=== PATIENT | female | born 1970 | race African-American/Black ===

== ENCOUNTER 2018-07-31 10:04 | Inpatient (IN) | payer OTHER ==
--- NOTE | 2018-07-31 10:31 | HP ---
CIWA Score Nausea/Vomitin Muscle Tremors: 2 Anxiety: 2 Agitation: 2 Paroxysmal Sweats: 1-Minimal Palms Moist Orientation: 0-Oriented Tacttile Disturbances: 1-Very Mild Itch/Numbness Auditory Disturbances: 1-Very Mild Visual Disturbances: 0-None Headache: 2-Mild CIWA-Ar Total Score: 13 - Admission Criteria OASAS Guidelines: Admission for Medically Managed Detox: Requires at least one of the followin. CIWA greater than 12 2. Seizures within the past 24 hours 3. Delirium tremens within the past 24 hours 4. Hallucinations within the past 24 hours 5. Acute intervention needed for co occurring medical disorder 6. Acute intervention needed for co occurring psychiatric disorder 7. Severe withdrawal that cannot be handled at a lower level of care (continued vomiting, continued diarrhea, abnormal vital signs) requiring intravenous medication and/or fluids 8. Patient presents the following: CIWA greater than 12 Admission Criteria Met: Admission criteria met Admission ROS B[facility] - HPI Chief Complaint: i need help to stop drinking alcohol and cocaine Allergies/Adverse Reactions: Allergies Allergy/AdvReac Type Severity Reaction Status Date / Time No Known Drug Allergies Allergy Severe Verified 07/31/18 10:37 turkey Allergy Severe Hives Verified 07/31/18 10:37 History of Present Illness: this 47 years old female with alcohol and cocaine dependence,seeking detox, withdrawal symptom,multiple admissions in the past but keep relapsing, last detox [facility] 04/03/16 to 04/04/16 not completed,history of non compliance former smoker, stopped ker 35 cigarette/day,but stopped 1 week ago weight loss schizophrenia on med no significant period of sobriety Exam Limitations: No Limitations - Ebola screening Have you traveled outside of the country in the last 21 days: No Have you had contact with anyone from an Ebola affected area: No - Review of Systems Constitutional: Loss of Appetite, Malaise, Night Sweats, Changes in sleep, Weakness, Unintentional Wgt. Loss EENT: reports: Nose Congestion Respiratory: reports: No Symptoms reported Cardiac: reports: Palpitations GI: reports: Nausea, Indigestion, Abdominal cramping : reports: No Symptoms Reported Musculoskeletal: reports: Back Pain, Muscle Pain Integumentary: reports: Dryness Neuro: reports: Headache, Tremors Endocrine: reports: No Symptoms Reported Hematology: reports: No Symptoms Reported Psychiatric: reports: No Sypmtoms Reported, Judgement Intact, Mood/Affect Appropiate, Orientated x3 Other Systems: Reviewed and Negative Patient History - Patient Medical History Hx Anemia: Yes (NO CURRENT MEDS) Hx Asthma: Yes (MDI) Hx Chronic Obstructive Pulmonary Disease (COPD): No Hx Cancer: No Hx Cardiac Disorders: No Hx Congestive Heart Failure: No Hx Hypertension: No Hx Hypercholesterolemia: No Hx Pacemaker: No HX Cerebrovascular Accident: No Hx Seizures: No Hx Dementia: No Hx Diabetes: No Hx Gastrointestinal Disorders: No Hx Liver Disease: No Hx Genitourinary Disorders: No Hx Sexually Transmitted Disorders: Yes (GENITAL HERPES HX) Hx Renal Disease (ESRD): No Hx Thyroid Disease: No Hx Human Immunodeficiency Virus (HIV): No (04/03/16 last negative) Hx Hepatitis C: No Hx Depression: Yes Hx Suicide Attempt: No (DENIES) Hx Bipolar Disorder: No Hx Schizophrenia: Yes (ON MEDS) Other Medical History: no suicidal,no homicidal - Patient Surgical History Past Surgical History: Yes Hx Neurologic Surgery: No Hx Cataract Extraction: No Hx Cardiac Surgery: No Hx Lung Surgery: No Hx Breast Surgery: No Hx Breast Biopsy: No Hx Abdominal Surgery: No Hx Appendectomy: No Hx Cholecystectomy: No Hx Genitourinary Surgery: No Hx Section: Yes (x 2 IN 1993 AND 1999) Hx Orthopedic Surgery: No Hx Hysterectomy: No Anesthesia Reaction: No - PPD History Previous Implant?: Yes Documented Results: Negative w/o proof Implanted On Prior [facility] Admission?: Yes Date: 01/05/15 Results: 0 mm PPD to be Administered?: Yes - Reproductive History Patient is a Female of Child Bearing Age (11 -55 yrs old): Yes Last Menstrual Period: 07/24/18 Patient : No - Smoking Cessation Smoking history: Former smoker Have you smoked in the past 12 months: Yes Aproximately how many cigarettes per day: 35 If you are a former smoker, when did you quit?: 07/24/18 Cigars Per Day: 0 Hx Chewing Tobacco Use: No Initiated information on smoking cessation: Yes 'Breaking Loose' booklet given: 07/31/18 - Substance & Tx. History Hx Alcohol Use: Yes Hx Substance Use: Yes Substance Use Type: Alcohol, Cocaine Hx Substance Use Treatment: Yes ([facility] 04/03/16 to 04/04/16 not completed) - Substances Abused Alcohol-beer/vodka Route: Oral Frequency: Daily Amount used: 1-6 pk./1 pt. Age of first use: 29 Date of Last Use: 07/30/18 Cocaine Route: Smoking Frequency: Daily Amount used: $50 Age of first use: 30 Date of Last Use: 07/24/18 Family Disease History - Family Disease History Family Disease History: Heart Disease: Father (ALCOHOL,DRUG,HTN), CA: Brother ( AOCOHOL,DRUG), Other: Father, Mother (ALCOHOL,DRUG), Brother, Sister (ALCOHOL, DRUG) Admission Physical Exam [facility] - Vital Signs Vital Signs: Vital Signs Period Temp Pulse Resp BP Sys/Stahl Pulse Ox Last 24 Hr 97 F 103 20 113/62 - Physical General Appearance: Yes: Moderate Distress, Tremorous, Irritable, Sweating, Anxious HEENTM: Yes: Normal ENT Inspection, JOSE, Pharynx Normal, Other (poor dental hygiene) Respiratory: Yes: Lungs Clear, Normal Breath Sounds, No Respiratory Distress Neck: Yes: Within Normal Limits, Supple, Trachea in good position Breast: Yes: Breast Exam Deferred Cardiology: Yes: Within Normal Limits, S1, S2, Tachycardia Abdominal: Yes: Within Normal Limits, Normal Bowel Sounds, Non Tender, Flat, Soft Genitourinary: Yes: Within Normal Limits Back: Yes: Muscle Spasm Musculoskeletal: Yes: Back pain, Muscle Pain Extremities: Yes: Within Normal Limits, Tremors Neurological: Yes: Within Normal Limits, telecommunications repairer II-XII NML intact, Alert, Motor Strength 5/5 Integumentary: Yes: Dry Lymphatic: Yes: Within Normal Limits - Diagnostic (1) Alcohol dependence with uncomplicated withdrawal Current Visit: Yes Status: Chronic (2) Cocaine dependence Current Visit: Yes Status: Chronic (3) Asthma Current Visit: Yes Status: Chronic (4) Nicotine dependence Current Visit: Yes Status: Chronic Qualifiers: Nicotine product type: cigarettes Substance use status: uncomplicated Qualified Code(s): F17.210 - Nicotine dependence, cigarettes, uncomplicated (5) Paranoid schizophrenia Current Visit: No Status: Chronic (6) Weight decreased Current Visit: No Status: Chronic (7) syncope alcohol related Current Visit: No Status: Chronic (8) Dehydration Current Visit: Yes Status: Acute (9) Poor dental hygiene Current Visit: Yes Status: Acute Cleared for Admission [facility] - Detox or Rehab [facility] Level of Care: Medically Managed Detox Regimen/Protocol: Librium B[facility] Breath Alcohol Content Breath Alcohol Content: 0 Inpatient Rehab Admission - Rehab Decision to Admit Inpatient rehab admission?: No
[2018-07-31 10:46] VITALS: BMI 28.1
[2018-07-31] MEDS ORDERED: P-EPHED 60MG/TRIPROLIDI 2.5MG TABLET PO PRN (10:47)
[2018-07-31] MEDS ORDERED: MAGNESIUM CITRATE 300 ML BOTTLE PO PRN (10:47)
[2018-07-31] MEDS ORDERED: MAGNESIUM HYDROX 2400MG/30ML ORAL SUSPENSION 30 ML CUP PO PRN (10:47)
[2018-07-31] MEDS ORDERED: chlordiazePOXIDE HCL 25 MG CAPSULE PO PRN (10:47)
[2018-07-31] MEDS ORDERED: LOPERAMIDE HCL 2 MG CAPSULE PO PRN (10:47)
[2018-07-31] MEDS ORDERED: hydrOXYzine PAMOATE 25 MG CAPSULE (FP) PO PRN (10:47)
[2018-07-31] MEDS ORDERED: MAG HYDROX/AL HYDROX/SIMETH 30 ML UNIT-DOSE CUP PO PRN (10:47)
[2018-07-31] MEDS ORDERED: guaiFENesin/D-METHORPHAN HB 10 ML UNIT-DOSE CUPS PO PRN (10:47)
[2018-07-31] MEDS ORDERED: MENTHOL/PHENOL 1 EACH UD MM PRN (10:47)
[2018-07-31] MEDS ORDERED: ALBUTEROL SO4 8 GM HFA INHALER IH PRN (10:50)
--- NOTE | 2018-07-31 12:18 | CONSULT ---
[facility] Psychiatric Consult - Data Date of interview: 07/31/18 Admission source: [facility] Identifying data: This is one of the multiple admissions to [facility] for this 47 years old AA single mother of 2(24 and 18 yo),domiciled,unemployed,supported by PA. Substance Abuse History: Reports smoking marijuana since 16 years old,4 bags daily,crack/cocaine since 29 yo,spending about $50 daily,drinking since 15 years old,1 pint of bud daily. Medical History: Significant for Anemia,BA. Psychiatric History: Reports first contact with psychiatrist at the age of [age] years old due to first psychotic breakdown with auditory hallucinations, paranoid behavior,drinking ,smoking crack.She was dx with Schiziohrenia,then with Schizoaffective disorder.Patient was on different antipsychotics,reports 10 more psychiatric hospitalizations.No suicidal attempts reported.Currently sees psychiatrist at [facility] in [facility].Current medications:Haldol decanoate 150 mg IM (given 07/17/18),Seroquel 400 mg po hs and 100 mg po am,Cogentin 2 mg po daily. Physical/Sexual Abuse/Trauma History: Patient denies Mental Status Exam - Mental Status Exam Alert and Oriented to: Time, Place, Person Cognitive Function: Grossly Intact Patient Appearance: Well Groomed Mood: Euthymic Affect: Mood Congruent, Normal Range Patient Behavior: Cooperative Speech Pattern: Clear Voice Loudness: Normal Thought Process: Goal Oriented Thought Disorder: Being Controlled Hallucinations: Denies Suicidal Ideation: Denies Homicidal Ideation: Denies Insight/Judgement: Fair Sleep: Fair Appetite: Good Muscle strength/Tone: Normal Gait/Station: Normal Psychiatric Findings - Problem List ([place] 1, 2,3) (1) Cocaine dependence Current Visit: Yes Status: Chronic (2) Alcohol dependence with uncomplicated withdrawal Current Visit: Yes Status: Chronic (3) Asthma Current Visit: Yes Status: Chronic (4) Nicotine dependence Current Visit: Yes Status: Chronic Qualifiers: Nicotine product type: cigarettes Substance use status: uncomplicated Qualified Code(s): F17.210 - Nicotine dependence, cigarettes, uncomplicated (5) Schizoaffective disorder.Depressed type Current Visit: Yes Status: Chronic (6) Seizure Current Visit: Yes Status: Inactive (7) Vaginitis Current Visit: Yes Status: Inactive Qualifiers: Chronicity: acute Qualified Code(s): N76.0 - Acute vaginitis - Initial Treatment Plan Initial Treatment Plan: Continue Seroquel 100 mg po dailly and 400 mg po hs with Cogentin 2 mg po daily.Next injection of Haldol Decanoate 150 mg IM needs to be given on August .Will monitor progress.
[2018-07-31] MEDS: BENZTROPINE MESYLATE 1 MG TABLET (FP) PO SCH (14:52)
[2018-07-31] MEDS: chlordiazePOXIDE HCL 25 MG CAPSULE PO SCH ×2 (17:51→22:35)
[2018-07-31] MEDS ORDERED: MELATONIN 5 MG TABLETS PO PRN (22:00)
[2018-07-31] MEDS: THIAMINE HCL 100 MG TABLET (FP) PO SCH (22:35)
[2018-07-31] MEDS: QUEtiapine FUMARATE 400 MG TABLET PO SCH (22:35)
[2018-07-31 23:24] LABS: URINE APPEARANCE CLOUDY; URINE BILIRUBIN NEGATIVE (<2.0 mg/dL); URINE COLOR AMBER; URINE GLUCOSE (UA) NEGATIVE (NEGATIVE); URINE KETONE NEGATIVE (NEGATIVE); URINE LEUK ESTERASE 2+ (NEGATIVE); URINE NITRITE POSITIVE (NEGATIVE); URINE PROTEIN 1+ (NEGATIVE); URINE UROBILINOGEN NEGATIVE mg/dL (0.2-1.0)
[2018-07-31 23:31] LABS: EPI CELLS MODERATE /HPF (FEW); URINE BACTERIA MODERATE /hpf (NONE SEEN); URINE HYALINE CAST 8 /lpf; URINE MUCUS MANY
[2018-08-01] MEDS: chlordiazePOXIDE HCL 25 MG CAPSULE PO SCH ×4 (05:30→22:39)
[2018-08-01] MEDS: PRENATAL VITAMINS W/ FOLIC ACID TABLET (FP) PO SCH (10:17)
[2018-08-01] MEDS: QUEtiapine FUMARATE 100 MG TABLET (FP) PO SCH (10:18)
[2018-08-01] MEDS: BENZTROPINE MESYLATE 1 MG TABLET (FP) PO SCH (10:18)
[2018-08-01] MEDS: ACETAMINOPHEN 325 MG TABLET (FP) PO PRN ×2 (10:21→22:41)
[2018-08-01 10:53] LABS: HEMATOCRIT 36.5 % (32.4-45.2); HEMOGLOBIN 12.4 GM/dL (10.7-15.3); MCH 32.1 pg (25.7-33.7); MEAN CELL VOLUME 94.6 fl (80-96); MEAN PLT VOLUME 9.2 fl (7.5-11.1); PLATELET COUNT 239 K/MM3 (134-434); RBC 3.86 M/mm3 (3.60-5.2); RDW 13.7 % (11.6-15.6); WHITE BLOOD COUNT 2.7 K/mm3 (4.0-10.0)
[2018-08-01 11:14] LABS: ALBUMIN 3.6 g/dl (3.4-5.0); ALK PHOS 91 U/L (45-117); ANION GAP 8 MMOL/L (8-16); BILIRUBIN,TOTAL 0.8 mg/dL (0.2-1); BLOOD UREA NITROGEN 13 mg/dL (7-18); CALCIUM 8.8 mg/dL (8.5-10.1); CHLORIDE 104 mmol/L (98-107); CO2 26 mmol/L (21-32); CREATININE 0.8 mg/dL (0.55-1.3); GLUCOSE,RANDOM 110 mg/dL (74-106); POTASSIUM 3.8 mmol/L (3.5-5.1); SGOT/AST 10 U/L (15-37); SGPT/ALT 14 U/L (13-61); SODIUM 138 mmol/L (136-145); TOT PROT 7.5 g/dl (6.4-8.2)
--- NOTE | 2018-08-01 11:37 | PN ---
[facility] CIWA - CIWA Score Nausea/Vomitin-No Nausea/No Vomiting Muscle Tremors: 3 Anxiety: 3 Agitation: 3 Paroxysmal Sweats: 3 Orientation: 0-Oriented Tacttile Disturbances: 0-None Auditory Disturbances: 0-None Visual Disturbances: 0-None Headache: 0-None Present CIWA-Ar Total Score: 12 S Progress Note (SOAP) Subjective: headache sweats shakes interrupted sleep Objective: 08/01/18 11:36 Vital Signs Temperature 97.9 F 08/01/18 09:47 Pulse Rate 102 H 08/01/18 09:47 Respiratory Rate 18 08/01/18 09:47 Blood Pressure 110/55 L 08/01/18 09:47 O2 Sat by Pulse Oximetry (%) Laboratory Tests 07/31/18 07/31/18 08/01/18 12:50 21:00 06:00 WBC 2.7 L RBC 3.86 Hgb 12.4 Hct 36.5 MCV 94.6 MCH 32.1 MCHC 34.0 RDW 13.7 Plt Count 239 MPV 9.2 Sodium Potassium Chloride Carbon Dioxide Anion Gap BUN Creatinine Creat Clearance w eGFR Random Glucose Calcium Total Bilirubin AST ALT Alkaline Phosphatase Total Protein Albumin Urine Color Evelin Urine Appearance Cloudy Urine pH 5.0 D Ur Specific [place] 1.028 Urine Protein 1+ H Urine Glucose (UA) Negative Urine Ketones Negative Urine Blood Negative Urine Nitrite Positive Urine Bilirubin Negative Urine Urobilinogen Negative Ur Leukocyte Esterase 2+ H Urine WBC (Auto) 24 Urine RBC (Auto) 1 Ur Epithelial Cells Moderate Urine Bacteria Moderate Hyaline Casts 8 Urine Mucus Many HIV 1&2 Antibody Screen Negative HIV P24 Antigen Negative 08/01/18 06:00 WBC RBC Hgb Hct MCV MCH MCHC RDW Plt Count MPV Sodium 138 Potassium 3.8 Chloride 104 Carbon Dioxide 26 Anion Gap 8 BUN 13 Creatinine 0.8 Creat Clearance w eGFR > 60 Random Glucose 110 H Calcium 8.8 Total Bilirubin 0.8 AST 10 L ALT 14 Alkaline Phosphatase 91 Total Protein 7.5 Albumin 3.6 Urine Color Urine Appearance Urine pH Ur Specific [place] Urine Protein Urine Glucose (UA) Urine Ketones Urine Blood Urine Nitrite Urine Bilirubin Urine Urobilinogen Ur Leukocyte Esterase Urine WBC (Auto) Urine RBC (Auto) Ur Epithelial Cells Urine Bacteria Hyaline Casts Urine Mucus HIV 1&2 Antibody Screen HIV P24 Antigen repeat u/a ambulating no acute distress Assessment: 08/01/18 11:36 withdrawal sx Plan: continue detox increase fluids motrin/tylenol prn
[2018-08-01] MEDS: IBUPROFEN 400 MG TABLET (FP) PO PRN (18:34)
[2018-08-01] MEDS: THIAMINE HCL 100 MG TABLET (FP) PO SCH (22:39)
[2018-08-01] MEDS: QUEtiapine FUMARATE 400 MG TABLET PO SCH (22:39)
[2018-08-02] MEDS: chlordiazePOXIDE HCL 25 MG CAPSULE PO SCH ×2 (05:36→10:56)
[2018-08-02] MEDS: BENZTROPINE MESYLATE 1 MG TABLET (FP) PO SCH (10:56)
[2018-08-02] MEDS: QUEtiapine FUMARATE 100 MG TABLET (FP) PO SCH (10:56)
[2018-08-02] MEDS: PRENATAL VITAMINS W/ FOLIC ACID TABLET (FP) PO SCH (10:57)
--- NOTE | 2018-08-02 12:15 | PN ---
[facility] CIWA - CIWA Score Nausea/Vomitin-No Nausea/No Vomiting Muscle Tremors: 3 Anxiety: 3 Agitation: 2 Paroxysmal Sweats: 1-Minimal Palms Moist Orientation: 0-Oriented Tacttile Disturbances: 0-None Auditory Disturbances: 0-None Visual Disturbances: 0-None Headache: 0-None Present CIWA-Ar Total Score: 9 S Progress Note (SOAP) Subjective: headache sweats Objective: 08/02/18 12:14 Vital Signs Temperature 97.3 F L 08/02/18 09:33 Pulse Rate 102 H 08/02/18 09:33 Respiratory Rate 18 08/02/18 09:33 Blood Pressure 111/60 08/02/18 09:33 O2 Sat by Pulse Oximetry (%) Laboratory Tests 07/31/18 07/31/18 08/01/18 12:50 21:00 06:00 WBC 2.7 L RBC 3.86 Hgb 12.4 Hct 36.5 MCV 94.6 MCH 32.1 MCHC 34.0 RDW 13.7 Plt Count 239 MPV 9.2 Sodium Potassium Chloride Carbon Dioxide Anion Gap BUN Creatinine Creat Clearance w eGFR Random Glucose Calcium Total Bilirubin AST ALT Alkaline Phosphatase Total Protein Albumin Urine Color Evelin Urine Appearance Cloudy Urine pH 5.0 D Ur Specific [place] 1.028 Urine Protein 1+ H Urine Glucose (UA) Negative Urine Ketones Negative Urine Blood Negative Urine Nitrite Positive Urine Bilirubin Negative Urine Urobilinogen Negative Ur Leukocyte Esterase 2+ H Urine WBC (Auto) 24 Urine RBC (Auto) 1 Ur Epithelial Cells Moderate Urine Bacteria Moderate Hyaline Casts 8 Urine Mucus Many RPR Titer HIV 1&2 Antibody Screen Negative HIV P24 Antigen Negative 08/01/18 08/01/18 06:00 06:00 WBC RBC Hgb Hct MCV MCH MCHC RDW Plt Count MPV Sodium 138 Potassium 3.8 Chloride 104 Carbon Dioxide 26 Anion Gap 8 BUN 13 Creatinine 0.8 Creat Clearance w eGFR > 60 Random Glucose 110 H Calcium 8.8 Total Bilirubin 0.8 AST 10 L ALT 14 Alkaline Phosphatase 91 Total Protein 7.5 Albumin 3.6 Urine Color Urine Appearance Urine pH Ur Specific [place] Urine Protein Urine Glucose (UA) Urine Ketones Urine Blood Urine Nitrite Urine Bilirubin Urine Urobilinogen Ur Leukocyte Esterase Urine WBC (Auto) Urine RBC (Auto) Ur Epithelial Cells Urine Bacteria Hyaline Casts Urine Mucus RPR Titer Nonreactive HIV 1&2 Antibody Screen HIV P24 Antigen aaox3 ambulating no acute distress Assessment: 08/02/18 12:15 withdrawal sx Plan: continue detox increase fluids motrin/tylenol prn
[2018-08-02] MEDS: IBUPROFEN 400 MG TABLET (FP) PO PRN (17:25)
[2018-08-02] MEDS: chlordiazePOXIDE 5 MG CAPSULE PO SCH ×2 (17:27→23:08)
[2018-08-02] MEDS: QUEtiapine FUMARATE 400 MG TABLET PO SCH (23:08)
[2018-08-02] MEDS: THIAMINE HCL 100 MG TABLET (FP) PO SCH (23:11)
[2018-08-03] MEDS: chlordiazePOXIDE 5 MG CAPSULE PO SCH ×2 (06:42→10:19)
[2018-08-03] MEDS: BENZTROPINE MESYLATE 1 MG TABLET (FP) PO SCH (10:19)
[2018-08-03] MEDS: PRENATAL VITAMINS W/ FOLIC ACID TABLET (FP) PO SCH (10:19)
[2018-08-03] MEDS: QUEtiapine FUMARATE 100 MG TABLET (FP) PO SCH (10:19)
[2018-08-03] MEDS: ACETAMINOPHEN 325 MG TABLET (FP) PO PRN ×2 (10:20→15:16)
--- NOTE | 2018-08-03 15:43 | PN ---
[facility] Progress Note (SOAP) Subjective: sweats "vaginal discharge" Objective: 08/03/18 15:41 In day room chatting comfortably with another pt In no acute distress Vital Signs Temperature 96.9 F L 08/03/18 14:00 Pulse Rate 119 H 08/03/18 14:00 Respiratory Rate 16 08/03/18 14:00 Blood Pressure 129/77 08/03/18 14:00 O2 Sat by Pulse Oximetry (%) Urine Test Results Urine Color Evelin 07/31/18 21:00 Urine Appearance Cloudy 07/31/18 21:00 Urine pH 5.0 (5.0-8.0) D 07/31/18 21:00 Ur Specific [place] 1.028 (1.010-1.035) 07/31/18 21:00 Urine Protein 1+ (NEGATIVE) H 07/31/18 21:00 Urine Glucose (UA) Negative (NEGATIVE) 07/31/18 21:00 Urine Ketones Negative (NEGATIVE) 07/31/18 21:00 Urine Blood Negative (NEGATIVE) 07/31/18 21:00 Urine Nitrite Positive (NEGATIVE) 07/31/18 21:00 Urine Bilirubin Negative (<2.0 mg/dL) 07/31/18 21:00 Ur Leukocyte Esterase 2+ (NEGATIVE) H 07/31/18 21:00 Ur Epithelial Cells Moderate /HPF (FEW) 07/31/18 21:00 Urine Bacteria Moderate /hpf (NONE SEEN) 07/31/18 21:00 Urine Mucus Many 07/31/18 21:00 Leuk Estrase positive Nitrite positive Assessment: 08/03/18 15:42 withdrawal sx UTI Plan: Continue detox For d/c tommorow Bactrim for UTI
[2018-08-03] MEDS: SULFAMETHOXAZOLE/TRIMETHOPRIM 800MG/160MG D.S. TABLET PO SCH ×2 (17:32→22:04)
[2018-08-03] MEDS: chlordiazePOXIDE HCL 10 MG CAPSULE PO SCH ×2 (17:33→22:05)
[2018-08-03] MEDS: THIAMINE HCL 100 MG TABLET (FP) PO SCH (22:04)
[2018-08-03] MEDS: QUEtiapine FUMARATE 400 MG TABLET PO SCH (22:05)
[2018-08-04] MEDS: chlordiazePOXIDE HCL 10 MG CAPSULE PO SCH (05:55)
[2018-08-04 07:44] VITALS: BP 104/67; PULSE 100; TEMP 96.1
[2018-08-04] MEDS: QUEtiapine FUMARATE 100 MG TABLET (FP) PO SCH (09:54)
[2018-08-04] MEDS: BENZTROPINE MESYLATE 1 MG TABLET (FP) PO SCH (09:54)
[2018-08-04] MEDS: PRENATAL VITAMINS W/ FOLIC ACID TABLET (FP) PO SCH (09:54)
[2018-08-04] MEDS: SULFAMETHOXAZOLE/TRIMETHOPRIM 800MG/160MG D.S. TABLET PO SCH (09:54)
--- NOTE | 2018-08-04 11:55 | DS ---
[facility] Detox Discharge Summary Admission Date: 07/31/18 - History Present History: Alcohol Dependence, Cocaine Dependence Additional Comments: Patient completed detox successfully. Patient is A/A/Ox3, in nad, vss, ambulatory. Patient instructed to follow up with PCP within 1-2 weeks. Patient discharged safely. Pertinent Past History: Asthma Depression Schizophrenia Alcohol dependence Cocaine dependence Acute UTI - Physical Exam Results Vital Signs: Vital Signs Temperature 96.1 F L 08/04/18 07:44 Pulse Rate 100 H 08/04/18 07:44 Respiratory Rate 20 08/04/18 07:44 Blood Pressure 104/67 08/04/18 07:44 O2 Sat by Pulse Oximetry (%) Pertinent Admission Physical Exam Findings: Withdrawal symptoms Laboratory Tests 07/31/18 07/31/18 08/01/18 12:50 21:00 06:00 WBC 2.7 L RBC 3.86 Hgb 12.4 Hct 36.5 MCV 94.6 MCH 32.1 MCHC 34.0 RDW 13.7 Plt Count 239 MPV 9.2 Sodium Potassium Chloride Carbon Dioxide Anion Gap BUN Creatinine Creat Clearance w eGFR Random Glucose Calcium Total Bilirubin AST ALT Alkaline Phosphatase Total Protein Albumin Urine Color Evelin Urine Appearance Cloudy Urine pH 5.0 D Ur Specific [place] 1.028 Urine Protein 1+ H Urine Glucose (UA) Negative Urine Ketones Negative Urine Blood Negative Urine Nitrite Positive Urine Bilirubin Negative Urine Urobilinogen Negative Ur Leukocyte Esterase 2+ H Urine WBC (Auto) 24 Urine RBC (Auto) 1 Ur Epithelial Cells Moderate Urine Bacteria Moderate Hyaline Casts 8 Urine Mucus Many RPR Titer HIV 1&2 Antibody Screen Negative HIV P24 Antigen Negative 08/01/18 08/01/18 06:00 06:00 WBC RBC Hgb Hct MCV MCH MCHC RDW Plt Count MPV Sodium 138 Potassium 3.8 Chloride 104 Carbon Dioxide 26 Anion Gap 8 BUN 13 Creatinine 0.8 Creat Clearance w eGFR > 60 Random Glucose 110 H Calcium 8.8 Total Bilirubin 0.8 AST 10 L ALT 14 Alkaline Phosphatase 91 Total Protein 7.5 Albumin 3.6 Urine Color Urine Appearance Urine pH Ur Specific [place] Urine Protein Urine Glucose (UA) Urine Ketones Urine Blood Urine Nitrite Urine Bilirubin Urine Urobilinogen Ur Leukocyte Esterase Urine WBC (Auto) Urine RBC (Auto) Ur Epithelial Cells Urine Bacteria Hyaline Casts Urine Mucus RPR Titer Nonreactive HIV 1&2 Antibody Screen HIV P24 Antigen Labs reviewed: noted with UTI, on bactrim DS. Rx sent to patient's pharmacy - Treatment Hospital Course: Detox Protocol Followed, Detoxed Safely, Responded well, Discharged Condition Good - Medication Discharge Medications: Ambulatory Orders Albuterol Sulfate Inhaler - [Ventolin HFA Inhaler -] 2 inh PO Q4H PRN 08/27/13 Haloperidol [Haldol -] 5 mg PO HS #30 tablet 05/24/15 Quetiapine Fumarate [Seroquel -] 400 mg PO HS #30 tablet 07/17/15 Benztropine Mesylate [Cogentin -] 2 mg PO BID 11/22/15 Risperidone [Risperdal] 1 mg PO BID 04/03/16 Sulfamethoxazole/Trimethoprim [Bactrim Ds Tablet] 1 each PO Q12H #12 tablet 08/20 - Diagnosis (1) Acute UTI Status: Acute (2) Alcohol withdrawal Status: Acute Qualifiers: Complication of substance-induced condition: uncomplicated Qualified Code(s ): F10.230 - Alcohol dependence with withdrawal, uncomplicated (3) Asthma Status: Chronic (4) Cocaine dependence Status: Chronic (5) Paranoid schizophrenia Status: Chronic (6) depression Status: Chronic - AMA Did Patient Leave Against Medical Advice: No (F/U with PCP within 1-2 weeks)
== END 2018-08-04 09:30 | disposition home or self-care (01) | DRG 774 ==
LOC: YASAS 10:04 → Y6N 11:55
PROVIDERS: ADMIT Surgery; ATTEND Surgery
PROC: HZ2ZZZZ Detoxification Services for Substance Abuse Treatment (ICD-10-PCS; principal; 2018-07-31)
DX: F10.230 Alcohol dependence with withdrawal, uncomplicated (principal); F14.20 Cocaine dependence, uncomplicated; F17.210 Nicotine dependence, cigarettes, uncomplicated; F20.0 Paranoid schizophrenia; F32.9 Major depressive disorder, single episode, unspecified; F25.1 Schizoaffective disorder, depressive type; N39.0 Urinary tract infection, site not specified; J45.909 Unspecified asthma, uncomplicated; N76.0 Acute vaginitis; R00.0 Tachycardia, unspecified; E86.0 Dehydration; K08.9 Disorder of teeth and supporting structures, unspecified; Z87.42 Personal history of other diseases of the female genital tract; Z86.69 Personal history of other diseases of the nervous system and sense organs
CPT/HCPCS: 36415; 80053; 81003; 81015; 85027; 86593; 87389

== ENCOUNTER 2020-04-19 10:41 | Inpatient (IN) | payer OTHER ==
[2020-04-19 11:31] VITALS: BMI 30.2
[2020-04-19] MEDS ORDERED: BISMUTH SUBSALICYLATE 262 MG/15 ML BTL PO PRN (11:45)
[2020-04-19] MEDS ORDERED: MAGNESIUM CITRATE 300 ML BOTTLE PO PRN (11:45)
[2020-04-19] MEDS ORDERED: ONDANSETRON *ODT* 4 MG TABLET SL PRN (11:45)
[2020-04-19] MEDS ORDERED: ACETAMINOPHEN 325 MG TABLET (FP) PO PRN ×2 (11:45)
[2020-04-19] MEDS ORDERED: NICOTINE POLACRILEX 2 MG GUM BUC PRN (11:45)
[2020-04-19] MEDS ORDERED: MAGNESIUM HYDROX 2400MG/30ML ORAL SUSPENSION 30 ML CUP PO PRN (11:45)
[2020-04-19] MEDS ORDERED: MAG HYDROX/AL HYDROX/SIMETH 30 ML UNIT-DOSE CUP PO PRN (11:45)
[2020-04-19] MEDS ORDERED: METHOCARBAMOL 500 MG TABLET PO PRN (11:45)
[2020-04-19] MEDS ORDERED: IBUPROFEN 400 MG TABLET (FP) PO PRN (11:45)
[2020-04-19] MEDS ORDERED: chlordiazePOXIDE HCL 25 MG CAPSULE PO PRN (11:45)
[2020-04-19] MEDS: NICOTINE 21 MG/24 HOURS TOPICAL PATCH TD SCH (13:03)
[2020-04-19] MEDS: BACITRACIN 0.9 GM PACKET TP SCH ×2 (13:03→22:13)
[2020-04-19] MEDS: hydrOXYzine PAMOATE 25 MG CAPSULE (FP) PO SCH ×3 (13:10→22:13)
[2020-04-19 14:50] LABS: HEMATOCRIT 39.9 % (32.4-45.2); HEMOGLOBIN 13.3 GM/dL (10.7-15.3); MCH 31.4 pg (25.7-33.7); MCHC 33.3 g/dl (32.0-36.0); MEAN CELL VOLUME 94.4 fl (80-96); MEAN PLT VOLUME 8.3 fl (7.5-11.1); PLATELET COUNT 265 K/MM3 (134-434); RBC 4.23 M/mm3 (3.60-5.2); RDW 14.8 % (11.6-15.6); WHITE BLOOD COUNT 3.4 K/mm3 (4.0-10.0)
[2020-04-19 14:59] LABS: ALBUMIN 3.6 g/dl (3.4-5.0); BLOOD UREA NITROGEN 15.3 mg/dL (7-18); CALCIUM 8.9 mg/dL (8.5-10.1)
[2020-04-19 15:01] LABS: BILIRUBIN,TOTAL 0.2 mg/dL (0.2-1)
[2020-04-19 15:02] LABS: CREATININE 0.9 mg/dL (0.55-1.3)
[2020-04-19 15:03] LABS: TOT PROT 7.6 g/dl (6.4-8.2)
[2020-04-19 15:51] LABS: HIV INTERPRETATION NEGATIVE (NEGATIVE)
[2020-04-19] MEDS: chlordiazePOXIDE HCL 25 MG CAPSULE PO SCH ×2 (17:28→22:13)
[2020-04-19] MEDS: THIAMINE HCL 100 MG TABLET (FP) PO SCH (22:13)
[2020-04-19] MEDS: QUEtiapine FUMARATE 400 MG TABLET PO SCH (22:13)
[2020-04-19] MEDS: MELATONIN 5 MG TABLETS PO SCH (22:13)
[2020-04-20] MEDS: hydrOXYzine PAMOATE 25 MG CAPSULE (FP) PO SCH ×2 (07:11→10:30)
[2020-04-20] MEDS: chlordiazePOXIDE HCL 25 MG CAPSULE PO SCH ×4 (07:11→22:19)
[2020-04-20] MEDS: NICOTINE 21 MG/24 HOURS TOPICAL PATCH TD SCH (10:29)
[2020-04-20] MEDS: BACITRACIN 0.9 GM PACKET TP SCH ×2 (10:29→22:19)
[2020-04-20] MEDS: PRENATAL VITAMINS W/ FOLIC ACID TABLET (FP) PO SCH (10:29)
[2020-04-20] MEDS ORDERED: hydrOXYzine PAMOATE 25 MG CAPSULE (FP) PO PRN (12:09)
[2020-04-20] MEDS ORDERED: SODIUM CHLORIDE NASAL SPRAY 44 ML BOTTLE NS PRN (12:15)
[2020-04-20] MEDS ORDERED: PENICILLIN G BENZATHINE 2,400,000 UNIT/4 ML PFS IM ONE (12:30)
[2020-04-20] MEDS: guaiFENesin 200 MG/10 ML 10 ML UNIT-DOSE CUPS PO PRN ×2 (17:28→23:41)
[2020-04-20] MEDS: MENTHOL/PHENOL 1 EACH UD MM PRN (21:41)
[2020-04-20] MEDS: QUEtiapine FUMARATE 400 MG TABLET PO SCH (22:19)
[2020-04-20] MEDS: THIAMINE HCL 100 MG TABLET (FP) PO SCH (22:19)
[2020-04-20] MEDS: MELATONIN 5 MG TABLETS PO SCH (22:19)
[2020-04-20] MEDS ORDERED: ALBUTEROL SO4 2.5/IPRATROPIUM 0.5 INH SOL 3 ML VIAL.NEB. NEB PRN (23:09)
[2020-04-21] MEDS: MENTHOL/PHENOL 1 EACH UD MM PRN (04:00)
[2020-04-21] MEDS: chlordiazePOXIDE HCL 25 MG CAPSULE PO SCH ×4 (07:14→22:03)
[2020-04-21] MEDS: guaiFENesin 200 MG/10 ML 10 ML UNIT-DOSE CUPS PO PRN ×3 (07:17→22:03)
[2020-04-21] MEDS: BACITRACIN 0.9 GM PACKET TP SCH ×2 (10:18→22:04)
[2020-04-21] MEDS: NICOTINE 21 MG/24 HOURS TOPICAL PATCH TD SCH (10:18)
[2020-04-21] MEDS: PRENATAL VITAMINS W/ FOLIC ACID TABLET (FP) PO SCH (10:18)
[2020-04-21] MEDS ORDERED: FLU VACCINE (FLULAVAL) PF 60 MCG/0.5 ML SYRINGE 2020-2021 IM ONE (11:33)
[2020-04-21] MEDS: ALBUTEROL SO4 HFA INHALER IH PRN ×2 (15:46→19:29)
[2020-04-21] MEDS: THIAMINE HCL 100 MG TABLET (FP) PO SCH (22:03)
[2020-04-21] MEDS: QUEtiapine FUMARATE 400 MG TABLET PO SCH (22:03)
[2020-04-21] MEDS: MELATONIN 5 MG TABLETS PO SCH (22:04)
[2020-04-22] MEDS ORDERED: chlordiazePOXIDE HCL 10 MG CAPSULE PO PRN
[2020-04-22] MEDS: chlordiazePOXIDE HCL 10 MG CAPSULE PO SCH ×2 (06:18→10:17)
[2020-04-22] MEDS: BACITRACIN 0.9 GM PACKET TP SCH (10:17)
[2020-04-22] MEDS: NICOTINE 21 MG/24 HOURS TOPICAL PATCH TD SCH (10:17)
[2020-04-22] MEDS: guaiFENesin 200 MG/10 ML 10 ML UNIT-DOSE CUPS PO PRN (10:19)
[2020-04-22] MEDS: PRENATAL VITAMINS W/ FOLIC ACID TABLET (FP) PO SCH (10:19)
[2020-04-22 10:28] VITALS: PULSE 111
[2020-04-22 13:31] VITALS: BP 120/80; TEMP 97.8
[2020-04-23] MEDS ORDERED: chlordiazePOXIDE HCL 10 MG CAPSULE PO SCH (05:00)
[2020-04-24] MEDS ORDERED: chlordiazePOXIDE HCL 10 MG CAPSULE PO ONE (05:00)
== END 2020-04-22 15:11 | disposition home or self-care (01) | DRG 774 ==
LOC: YASAS 10:41 → Y6N 11:44
PROVIDERS: ADMIT Allergy & Immunology; ATTEND Allergy & Immunology
PROC: HZ2ZZZZ Detoxification Services for Substance Abuse Treatment (ICD-10-PCS; principal; 2020-04-19)
DX: F10.230 Alcohol dependence with withdrawal, uncomplicated (principal); F14.20 Cocaine dependence, uncomplicated; F17.210 Nicotine dependence, cigarettes, uncomplicated; F19.282 Other psychoactive substance dependence with psychoactive substance-induced sleep disorder; F20.9 Schizophrenia, unspecified; D64.9 Anemia, unspecified; R05 Cough; R09.81 Nasal congestion; Z86.19 Personal history of other infectious and parasitic diseases; Z91.018 Allergy to other foods; S80.211A Abrasion, right knee, initial encounter; V58.4XXA Person boarding or alighting a pick-up truck or van injured in noncollision transport accident, initial encounter; Y92.488 Other paved roadways as the place of occurrence of the external cause; Y93.89 Activity, other specified; Y99.8 Other external cause status
CPT/HCPCS: 36415; 80053; 81025; 85027; 86593; 86780; 87389; 94640; C9803; Q0162; U0003

== ENCOUNTER 2020-08-07 11:15 | Inpatient (IN) | payer OTHER ==
[2020-08-07 16:03] VITALS: BMI 32.1
[2020-08-07] MEDS ORDERED: IBUPROFEN 400 MG TABLET (FP) PO PRN (16:53)
[2020-08-07] MEDS ORDERED: ACETAMINOPHEN 325 MG TABLET (FP) PO PRN ×2 (16:53)
[2020-08-07] MEDS ORDERED: MAG HYDROX/AL HYDROX/SIMETH 30 ML UNIT-DOSE CUP PO PRN (16:53)
[2020-08-07] MEDS ORDERED: METHOCARBAMOL 500 MG TABLET PO PRN (16:53)
[2020-08-07] MEDS ORDERED: NICOTINE POLACRILEX 2 MG GUM BUC PRN (16:53)
[2020-08-07] MEDS ORDERED: MAGNESIUM CITRATE 300 ML BOTTLE PO PRN (16:53)
[2020-08-07] MEDS ORDERED: BISMUTH SUBSALICYLATE 524 MG/30 ML UD PO PRN (16:53)
[2020-08-07] MEDS ORDERED: MENTHOL/PHENOL 1 EACH UD MM PRN (16:53)
[2020-08-07] MEDS ORDERED: ONDANSETRON *ODT* 4 MG TABLET SL PRN (16:53)
[2020-08-07] MEDS ORDERED: chlordiazePOXIDE HCL 25 MG CAPSULE PO PRN (16:53)
[2020-08-07] MEDS ORDERED: ALBUTEROL SO4 HFA INHALER IH PRN (18:22)
[2020-08-07] MEDS: chlordiazePOXIDE HCL 25 MG CAPSULE PO SCH ×2 (18:31→22:39)
[2020-08-07] MEDS: hydrOXYzine PAMOATE 25 MG CAPSULE (FP) PO SCH ×2 (18:32→22:39)
[2020-08-07] MEDS: MELATONIN 5 MG TABLETS PO SCH (22:39)
[2020-08-07] MEDS: THIAMINE HCL 100 MG TABLET (FP) PO SCH (22:39)
[2020-08-08] MEDS: chlordiazePOXIDE HCL 25 MG CAPSULE PO SCH ×4 (06:10→22:46)
[2020-08-08] MEDS: hydrOXYzine PAMOATE 25 MG CAPSULE (FP) PO SCH ×5 (06:10→22:45)
[2020-08-08] MEDS: PRENATAL VITAMINS W/ FOLIC ACID TABLET (FP) PO SCH (10:03)
[2020-08-08] MEDS: NICOTINE 7 MG/24 HOURS TOPICAL PATCH TD SCH (10:05)
[2020-08-08 11:45] LABS: HEMATOCRIT 36.9 % (32.4-45.2); HEMOGLOBIN 12.3 GM/dL (10.7-15.3); MCH 31.3 pg (25.7-33.7); MCHC 33.4 g/dl (32.0-36.0); MEAN CELL VOLUME 93.8 fl (80-96); MEAN PLT VOLUME 8.6 fl (7.5-11.1); PLATELET COUNT 228 K/MM3 (134-434); RBC 3.93 M/mm3 (3.60-5.2); RDW 14.1 % (11.6-15.6); WHITE BLOOD COUNT 2.8 K/mm3 (4.0-10.0)
[2020-08-08 11:48] LABS: POTASSIUM 4.1 mmol/L (3.5-5.1)
[2020-08-08 11:58] LABS: ALBUMIN 3.1 g/dl (3.4-5.0); BLOOD UREA NITROGEN 13.9 mg/dL (7-18); CALCIUM 8.3 mg/dL (8.5-10.1)
[2020-08-08 12:01] LABS: CREATININE 0.8 mg/dL (0.55-1.3)
[2020-08-08 12:03] LABS: BILIRUBIN,TOTAL 0.6 mg/dL (0.2-1); TOT PROT 6.4 g/dl (6.4-8.2)
[2020-08-08 13:00] LABS: HIV INTERPRETATION NEGATIVE (NEGATIVE)
[2020-08-08] MEDS ORDERED: PENICILLIN G BENZATHINE 2,400,000 UNIT/4 ML PFS IM ONE ×2 (18:30→23:45)
[2020-08-08 19:46] LABS: PH,URINE 8.5 (5.0-8.0); URINE APPEARANCE CLOUDY; URINE BILIRUBIN NEGATIVE (NEGATIVE); URINE COLOR YELLOW; URINE GLUCOSE (UA) NEGATIVE (NEGATIVE); URINE KETONE NEGATIVE (NEGATIVE); URINE LEUK ESTERASE NEGATIVE (NEGATIVE); URINE NITRITE NEGATIVE (NEGATIVE); URINE PROTEIN NEGATIVE (NEGATIVE); URINE UROBILINOGEN 0.2 mg/dL (0.2-1.0)
[2020-08-08] MEDS: QUEtiapine FUMARATE 200 MG TABLET PO SCH (22:45)
[2020-08-08] MEDS: MELATONIN 5 MG TABLETS PO SCH (22:45)
[2020-08-08] MEDS: THIAMINE HCL 100 MG TABLET (FP) PO SCH (22:46)
[2020-08-08] MEDS: CALCIUM CARBONATE 650 MG TABLET PO SCH (22:46)
[2020-08-08] MEDS: CLOTRIMAZOLE 1% VAGINAL CREAM WITH APPLICATOR 45 GM TUBE VG SCH (22:48)
[2020-08-09] MEDS: chlordiazePOXIDE HCL 25 MG CAPSULE PO SCH ×4 (06:25→22:57)
[2020-08-09] MEDS: hydrOXYzine PAMOATE 25 MG CAPSULE (FP) PO SCH ×2 (06:25→10:29)
[2020-08-09] MEDS: NICOTINE 7 MG/24 HOURS TOPICAL PATCH TD SCH (10:27)
[2020-08-09] MEDS: PRENATAL VITAMINS W/ FOLIC ACID TABLET (FP) PO SCH (10:28)
[2020-08-09] MEDS: CALCIUM CARBONATE 650 MG TABLET PO SCH ×2 (10:28→22:58)
[2020-08-09] MEDS ORDERED: hydrOXYzine PAMOATE 25 MG CAPSULE (FP) PO PRN (10:32)
[2020-08-09] MEDS: THIAMINE HCL 100 MG TABLET (FP) PO SCH (22:57)
[2020-08-09] MEDS: QUEtiapine FUMARATE 200 MG TABLET PO SCH (22:57)
[2020-08-09] MEDS: CLOTRIMAZOLE 1% VAGINAL CREAM WITH APPLICATOR 45 GM TUBE VG SCH (22:58)
[2020-08-09] MEDS: MELATONIN 5 MG TABLETS PO SCH (22:58)
[2020-08-10] MEDS ORDERED: chlordiazePOXIDE HCL 10 MG CAPSULE PO PRN
[2020-08-10] MEDS: chlordiazePOXIDE HCL 10 MG CAPSULE PO SCH ×4 (06:18→22:13)
[2020-08-10] MEDS: PRENATAL VITAMINS W/ FOLIC ACID TABLET (FP) PO SCH (10:33)
[2020-08-10] MEDS: NICOTINE 7 MG/24 HOURS TOPICAL PATCH TD SCH (10:34)
[2020-08-10] MEDS: CALCIUM CARBONATE 650 MG TABLET PO SCH (10:34)
[2020-08-10] MEDS: MAGNESIUM HYDROX 2400MG/30ML ORAL SUSPENSION 30 ML CUP PO PRN ×2 (10:35→19:10)
[2020-08-10] MEDS: MELATONIN 5 MG TABLETS PO SCH (22:14)
[2020-08-10] MEDS: THIAMINE HCL 100 MG TABLET (FP) PO SCH (22:14)
[2020-08-10] MEDS: QUEtiapine FUMARATE 200 MG TABLET PO SCH (22:14)
[2020-08-10] MEDS: CLOTRIMAZOLE 1% VAGINAL CREAM WITH APPLICATOR 45 GM TUBE VG SCH (22:16)
[2020-08-11] MEDS ORDERED: chlordiazePOXIDE HCL 10 MG CAPSULE PO SCH (05:00)
[2020-08-11 09:28] VITALS: BP 125/76; PULSE 100; TEMP 97.7
[2020-08-11] MEDS: NICOTINE 7 MG/24 HOURS TOPICAL PATCH TD SCH (09:55)
[2020-08-11] MEDS: PRENATAL VITAMINS W/ FOLIC ACID TABLET (FP) PO SCH (09:55)
[2020-08-12] MEDS ORDERED: chlordiazePOXIDE HCL 10 MG CAPSULE PO ONE (05:00)
[2020-08-15] MEDS ORDERED: PENICILLIN G BENZATHINE 2,400,000 UNIT/4 ML PFS IM ONE (18:36)
[2020-08-22] MEDS ORDERED: PENICILLIN G BENZATHINE 2,400,000 UNIT/4 ML PFS IM ONE (18:37)
== END 2020-08-11 09:33 | disposition home or self-care (01) | DRG 774 ==
LOC: YASAS 11:15 → Y3N 16:48
PROVIDERS: ADMIT Allergy & Immunology; ATTEND Allergy & Immunology
PROC: HZ2ZZZZ Detoxification Services for Substance Abuse Treatment (ICD-10-PCS; principal; 2020-08-07)
DX: F10.230 Alcohol dependence with withdrawal, uncomplicated (principal); F14.20 Cocaine dependence, uncomplicated; F17.210 Nicotine dependence, cigarettes, uncomplicated; F20.0 Paranoid schizophrenia; F19.282 Other psychoactive substance dependence with psychoactive substance-induced sleep disorder; E88.09 Other disorders of plasma-protein metabolism, not elsewhere classified; E83.51 Hypocalcemia; D72.819 Decreased white blood cell count, unspecified; A53.9 Syphilis, unspecified; B37.3 Candidiasis of vulva and vagina; J45.909 Unspecified asthma, uncomplicated; Z86.2 Personal history of diseases of the blood and blood-forming organs and certain disorders involving the immune mechanism
CPT/HCPCS: 36415; 80053; 81003; 81025; 85027; 86593; 86780; 87389; 93005; 93010; C9803; U0003

== ENCOUNTER 2020-09-28 11:55 | Inpatient (IN) | payer OTHER ==
[2020-09-28 12:51] VITALS: BMI 28.5
[2020-09-28] MEDS ORDERED: guaiFENesin 200 MG/10 ML 10 ML UNIT-DOSE CUPS PO PRN (16:04)
[2020-09-28] MEDS ORDERED: MAGNESIUM CITRATE 300 ML BOTTLE PO PRN (16:04)
[2020-09-28] MEDS ORDERED: P-EPHED 60MG/TRIPROLIDI 2.5MG TABLET PO PRN (16:04)
[2020-09-28] MEDS ORDERED: LOPERAMIDE HCL 2 MG CAPSULE PO PRN (16:04)
[2020-09-28] MEDS ORDERED: NICOTINE POLACRILEX 2 MG GUM BC PRN (16:04)
[2020-09-28] MEDS ORDERED: MAG HYDROX/AL HYDROX/SIMETH 30 ML UNIT-DOSE CUP PO PRN (16:04)
[2020-09-28] MEDS ORDERED: ALBUTEROL SO4 HFA INHALER IH PRN (16:06)
[2020-09-28] MEDS: hydrOXYzine PAMOATE 25 MG CAPSULE (FP) PO SCH ×2 (18:09→21:34)
[2020-09-28] MEDS: PRENATAL VITAMINS W/ FOLIC ACID TABLET (FP) PO SCH (18:09)
[2020-09-28] MEDS: THIAMINE HCL 100 MG TABLET (FP) PO SCH (21:34)
[2020-09-28] MEDS: MELATONIN 5 MG TABLETS PO SCH (21:34)
[2020-09-29] MEDS: hydrOXYzine PAMOATE 25 MG CAPSULE (FP) PO SCH ×6 (08:28→23:05)
[2020-09-29] MEDS: PRENATAL VITAMINS W/ FOLIC ACID TABLET (FP) PO SCH (09:41)
[2020-09-29] MEDS: NICOTINE 21 MG/24 HOURS TOPICAL PATCH TD SCH (09:41)
[2020-09-29 10:07] LABS: HEMATOCRIT 35.9 % (32.4-45.2); MCH 31.4 pg (25.7-33.7); MCHC 33.3 g/dl (32.0-36.0); MEAN CELL VOLUME 94.2 fl (80-96); MEAN PLT VOLUME 8.7 fl (7.5-11.1); PLATELET COUNT 209 K/MM3 (134-434); RBC 3.81 M/mm3 (3.60-5.2); RDW 14.2 % (11.6-15.6); WHITE BLOOD COUNT 3.4 K/mm3 (4.0-10.0)
[2020-09-29 10:20] LABS: ALBUMIN 3.2 g/dl (3.4-5.0); BLOOD UREA NITROGEN 15.7 mg/dL (7-18); CALCIUM 8.5 mg/dL (8.5-10.1)
[2020-09-29 10:23] LABS: CREATININE 0.7 mg/dL (0.55-1.3)
[2020-09-29 10:25] LABS: BILIRUBIN,TOTAL 0.2 mg/dL (0.2-1); TOT PROT 6.6 g/dl (6.4-8.2)
[2020-09-29] MEDS: ACETAMINOPHEN 325 MG TABLET (FP) PO PRN (18:32)
[2020-09-29] MEDS: MAGNESIUM HYDROX 2400MG/30ML ORAL SUSPENSION 30 ML CUP PO PRN (18:33)
[2020-09-29] MEDS: MELATONIN 5 MG TABLETS PO SCH (21:30)
[2020-09-29] MEDS: THIAMINE HCL 100 MG TABLET (FP) PO SCH (21:30)
[2020-09-29] MEDS: QUEtiapine FUMARATE 400 MG TABLET PO SCH (21:32)
[2020-09-29] MEDS: BENZTROPINE MESYLATE 1 MG TABLET PO SCH (21:33)
[2020-09-29] MEDS: IBUPROFEN 400 MG TABLET (FP) PO PRN (21:35)
[2020-09-30] MEDS: hydrOXYzine PAMOATE 25 MG CAPSULE (FP) PO SCH ×2 (06:44→10:49)
[2020-09-30] MEDS: ACETAMINOPHEN 325 MG TABLET (FP) PO PRN ×2 (06:45→16:51)
[2020-09-30] MEDS: PRENATAL VITAMINS W/ FOLIC ACID TABLET (FP) PO SCH (10:49)
[2020-09-30] MEDS: NICOTINE 21 MG/24 HOURS TOPICAL PATCH TD SCH (10:50)
[2020-09-30] MEDS: BENZTROPINE MESYLATE 1 MG TABLET PO SCH ×2 (10:51→21:35)
[2020-09-30] MEDS ORDERED: MASKS NR ONE (12:05)
[2020-09-30 15:04] LABS: PH,URINE 7.5 (5.0-8.0); URINE APPEARANCE CLEAR; URINE BILIRUBIN NEGATIVE (NEGATIVE); URINE COLOR YELLOW; URINE GLUCOSE (UA) NEGATIVE (NEGATIVE); URINE KETONE NEGATIVE (NEGATIVE); URINE LEUK ESTERASE NEGATIVE (NEGATIVE); URINE NITRITE NEGATIVE (NEGATIVE); URINE PROTEIN NEGATIVE (NEGATIVE); URINE UROBILINOGEN 0.2 mg/dL (0.2-1.0)
[2020-09-30] MEDS: MAGNESIUM HYDROX 2400MG/30ML ORAL SUSPENSION 30 ML CUP PO PRN (16:53)
[2020-09-30] MEDS: IBUPROFEN 400 MG TABLET (FP) PO PRN (19:56)
[2020-09-30] MEDS: QUEtiapine FUMARATE 400 MG TABLET PO SCH (21:35)
[2020-09-30] MEDS: hydrOXYzine PAMOATE 25 MG CAPSULE (FP) PO PRN (21:36)
[2020-09-30] MEDS: THIAMINE HCL 100 MG TABLET (FP) PO SCH (21:36)
[2020-09-30] MEDS: MELATONIN 5 MG TABLETS PO SCH (21:37)
[2020-10-01] MEDS: ACETAMINOPHEN 325 MG TABLET (FP) PO PRN (01:38)
[2020-10-01 06:42] VITALS: BP 113/76; PULSE 88; TEMP 97.5
[2020-10-01] MEDS: PRENATAL VITAMINS W/ FOLIC ACID TABLET (FP) PO SCH (10:14)
[2020-10-01] MEDS: NICOTINE 21 MG/24 HOURS TOPICAL PATCH TD SCH (10:15)
[2020-10-01] MEDS: BENZTROPINE MESYLATE 1 MG TABLET PO SCH (10:15)
[2020-10-01] MEDS: hydrOXYzine PAMOATE 25 MG CAPSULE (FP) PO PRN (10:16)
[2020-10-02 06:06] LABS: SARS-CoV-2 NAA Not Detected (Not Detected)
== END 2020-10-01 12:50 | disposition home or self-care (01) | DRG 772 ==
LOC: YASAS 11:55 → Y5N 16:29
PROVIDERS: ADMIT Allergy & Immunology; ATTEND Allergy & Immunology
PROC: HZ42ZZZ Group Counseling for Substance Abuse Treatment, Cognitive-Behavioral (ICD-10-PCS; principal; 2020-09-28)
DX: F10.20 Alcohol dependence, uncomplicated (principal); F14.20 Cocaine dependence, uncomplicated; F17.210 Nicotine dependence, cigarettes, uncomplicated; F19.282 Other psychoactive substance dependence with psychoactive substance-induced sleep disorder; F20.9 Schizophrenia, unspecified; D64.9 Anemia, unspecified; J45.909 Unspecified asthma, uncomplicated; N89.8 Other specified noninflammatory disorders of vagina
CPT/HCPCS: 36415; 80053; 81003; 81025; 82962; 85027; 86593; 86780; 87086; C9803; U0003; U0005

== ENCOUNTER 2020-11-27 13:38 | Inpatient (IN) | payer OTHER ==
[2020-11-27 13:55] VITALS: BMI 31.8
[2020-11-27] MEDS ORDERED: ONDANSETRON *ODT* 4 MG TABLET SL PRN (14:42)
[2020-11-27] MEDS ORDERED: BISMUTH SUBSALICYLATE 524 MG/30 ML PO PRN (14:42)
[2020-11-27] MEDS ORDERED: IBUPROFEN 400 MG TABLET (FP) PO PRN (14:42)
[2020-11-27] MEDS ORDERED: NICOTINE POLACRILEX 2 MG GUM BUC PRN (14:42)
[2020-11-27] MEDS ORDERED: ACETAMINOPHEN 325 MG TABLET (FP) PO PRN (14:42)
[2020-11-27] MEDS ORDERED: MAGNESIUM CITRATE 300 ML BOTTLE PO PRN (14:42)
[2020-11-27] MEDS ORDERED: MAG HYDROX/AL HYDROX/SIMETH 30 ML UNIT-DOSE CUP PO PRN (14:42)
[2020-11-27] MEDS ORDERED: MENTHOL/PHENOL 1 EACH UD MM PRN (14:42)
[2020-11-27] MEDS: hydrOXYzine PAMOATE 25 MG CAPSULE (FP) PO SCH ×2 (17:26→22:01)
[2020-11-27] MEDS: diazePAM 5 MG TABLET PO SCH ×2 (17:26→22:01)
[2020-11-27] MEDS: MAGNESIUM HYDROX 2400MG/30ML ORAL SUSPENSION 30 ML CUP PO PRN (18:12)
[2020-11-27] MEDS: THIAMINE HCL 100 MG TABLET (FP) PO SCH (22:00)
[2020-11-27] MEDS: MELATONIN 5 MG TABLETS PO SCH (22:00)
[2020-11-28] MEDS: diazePAM 5 MG TABLET PO SCH ×4 (05:31→22:01)
[2020-11-28] MEDS: hydrOXYzine PAMOATE 25 MG CAPSULE (FP) PO SCH ×5 (05:32→22:01)
[2020-11-28] MEDS: diazePAM 5 MG TABLET PO PRN (08:39)
[2020-11-28 09:25] LABS: HEMATOCRIT 38.1 % (32.4-45.2); HEMOGLOBIN 12.7 GM/dL (10.7-15.3); MCH 31.2 pg (25.7-33.7); MCHC 33.3 g/dl (32.0-36.0); MEAN CELL VOLUME 93.8 fl (80-96); PLATELET COUNT 229 10^3/uL (134-434); RBC 4.06 M/mm3 (3.60-5.2); RDW 14.2 % (11.6-15.6); WHITE BLOOD COUNT 3.4 K/mm3 (4.0-10.0)
[2020-11-28 10:06] LABS: ALBUMIN 3.7 g/dl (3.4-5.0); BLOOD UREA NITROGEN 17.9 mg/dL (7-18); CALCIUM 8.4 mg/dL (8.5-10.1)
[2020-11-28 10:11] LABS: BILIRUBIN,TOTAL 0.3 mg/dL (0.2-1); TOT PROT 7.6 g/dl (6.4-8.2)
[2020-11-28 10:12] LABS: CREATININE 0.7 mg/dL (0.55-1.3)
[2020-11-28] MEDS: PRENATAL VITAMINS W/ FOLIC ACID TABLET (FP) PO SCH (10:30)
[2020-11-28] MEDS: NICOTINE 7 MG/24 HOURS TOPICAL PATCH TD SCH (10:31)
[2020-11-28 10:44] LABS: HIV INTERPRETATION NEGATIVE (NEGATIVE)
[2020-11-28] MEDS ORDERED: ALBUTEROL SO4 HFA INHALER IH PRN (12:10)
[2020-11-28] MEDS ORDERED: FLUoxetine HCL 10 MG TABLET PO SCH (14:15)
[2020-11-28] MEDS ORDERED: FLUoxetine HCL 10 MG CAPSULE PO SCH (15:42)
[2020-11-28] MEDS: FLUoxetine HCL 10 MG CAPSULE PO SCH (17:37)
[2020-11-28] MEDS: MELATONIN 5 MG TABLETS PO SCH (22:01)
[2020-11-28] MEDS: QUEtiapine FUMARATE 400 MG TABLET PO SCH (22:01)
[2020-11-28] MEDS: THIAMINE HCL 100 MG TABLET (FP) PO SCH (22:01)
[2020-11-29] MEDS: diazePAM 5 MG TABLET PO SCH ×3 (06:41→22:20)
[2020-11-29] MEDS: hydrOXYzine PAMOATE 25 MG CAPSULE (FP) PO SCH ×5 (06:41→22:20)
[2020-11-29] MEDS: PRENATAL VITAMINS W/ FOLIC ACID TABLET (FP) PO SCH (10:02)
[2020-11-29] MEDS: FLUoxetine HCL 10 MG CAPSULE PO SCH (10:02)
[2020-11-29] MEDS: NICOTINE 7 MG/24 HOURS TOPICAL PATCH TD SCH (10:04)
[2020-11-29] MEDS: diazePAM 5 MG TABLET PO PRN (10:16)
[2020-11-29] MEDS: ACETAMINOPHEN 325 MG TABLET (FP) PO PRN (10:17)
[2020-11-29] MEDS: MAGNESIUM HYDROX 2400MG/30ML ORAL SUSPENSION 30 ML CUP PO PRN (10:17)
[2020-11-29] MEDS ORDERED: COVID-19 VAC,AD26(JANSSEN)/PF 0.5 ML IM ONE (12:00)
[2020-11-29] MEDS: THIAMINE HCL 100 MG TABLET (FP) PO SCH (22:20)
[2020-11-29] MEDS: QUEtiapine FUMARATE 400 MG TABLET PO SCH (22:20)
[2020-11-29] MEDS: MELATONIN 5 MG TABLETS PO SCH (22:20)
[2020-11-30] MEDS: diazePAM 5 MG TABLET PO SCH ×2 (06:02→18:05)
[2020-11-30] MEDS: hydrOXYzine PAMOATE 25 MG CAPSULE (FP) PO SCH ×5 (06:03→22:12)
[2020-11-30] MEDS ORDERED: PENICILLIN G BENZATHINE 2,400,000 UNIT/4 ML PFS IM ONE (08:01)
[2020-11-30] MEDS: FLUoxetine HCL 10 MG CAPSULE PO SCH (09:42)
[2020-11-30] MEDS: PRENATAL VITAMINS W/ FOLIC ACID TABLET (FP) PO SCH (09:42)
[2020-11-30] MEDS: NICOTINE 7 MG/24 HOURS TOPICAL PATCH TD SCH (09:45)
[2020-11-30] MEDS: ACETAMINOPHEN 325 MG TABLET (FP) PO PRN ×2 (09:49→17:50)
[2020-11-30] MEDS: METHOCARBAMOL 500 MG TABLET PO PRN ×2 (09:51→22:13)
[2020-11-30] MEDS: QUEtiapine FUMARATE 400 MG TABLET PO SCH (22:12)
[2020-11-30] MEDS: THIAMINE HCL 100 MG TABLET (FP) PO SCH (22:12)
[2020-11-30] MEDS: MELATONIN 5 MG TABLETS PO SCH (22:13)
[2020-12-01] MEDS: hydrOXYzine PAMOATE 25 MG CAPSULE (FP) PO SCH (05:58)
[2020-12-01] MEDS ORDERED: diazePAM 5 MG TABLET PO ONE (06:00)
[2020-12-01 08:52] VITALS: BP 116/69; PULSE 70; TEMP 96.8
== END 2020-12-01 08:45 | disposition home or self-care (01) | DRG 774 ==
LOC: YASAS 13:38 → Y3N 16:25
PROVIDERS: ADMIT Allergy & Immunology; ATTEND Allergy & Immunology
PROC: HZ2ZZZZ Detoxification Services for Substance Abuse Treatment (ICD-10-PCS; principal; 2020-11-27)
DX: F10.230 Alcohol dependence with withdrawal, uncomplicated (principal); F14.20 Cocaine dependence, uncomplicated; F17.210 Nicotine dependence, cigarettes, uncomplicated; F25.9 Schizoaffective disorder, unspecified; J45.909 Unspecified asthma, uncomplicated; A53.9 Syphilis, unspecified; Z87.42 Personal history of other diseases of the female genital tract; Z86.2 Personal history of diseases of the blood and blood-forming organs and certain disorders involving the immune mechanism
CPT/HCPCS: 0031A; 36415; 80053; 81025; 82962; 85027; 86593; 86780; 87389; 91303; C9803; U0003; U0005

== ENCOUNTER 2021-01-07 12:12 | Inpatient (IN) | payer OTHER ==
[2021-01-07] MEDS ORDERED: MAGNESIUM CITRATE 300 ML BOTTLE PO PRN (14:29)
[2021-01-07] MEDS ORDERED: MAG HYDROX/AL HYDROX/SIMETH 30 ML UNIT-DOSE CUP PO PRN (14:29)
[2021-01-07] MEDS ORDERED: MENTHOL/PHENOL 1 EACH UD MM PRN (14:29)
[2021-01-07] MEDS ORDERED: ONDANSETRON *ODT* 4 MG TABLET SL PRN (14:29)
[2021-01-07] MEDS ORDERED: MAGNESIUM HYDROX 2400MG/30ML ORAL SUSPENSION 30 ML CUP PO PRN (14:29)
[2021-01-07] MEDS ORDERED: METHOCARBAMOL 500 MG TABLET PO PRN (14:29)
[2021-01-07] MEDS ORDERED: ACETAMINOPHEN 325 MG TABLET (FP) PO PRN ×2 (14:29)
[2021-01-07] MEDS ORDERED: hydrOXYzine PAMOATE 25 MG CAPSULE (FP) PO PRN (14:29)
[2021-01-07] MEDS ORDERED: IBUPROFEN 400 MG TABLET (FP) PO PRN (14:29)
[2021-01-07] MEDS ORDERED: BISMUTH SUBSALICYLATE 524 MG/30 ML PO PRN (14:29)
[2021-01-07 14:39] VITALS: BMI 31.1
[2021-01-07] MEDS ORDERED: THIAMINE HCL 100 MG TABLET (FP) PO SCH (22:00)
[2021-01-07] MEDS ORDERED: MELATONIN 5 MG TABLETS PO SCH (22:00)
[2021-01-08 08:56] LABS: HEMATOCRIT 38.1 % (32.4-45.2); HEMOGLOBIN 12.8 GM/dL (10.7-15.3); MCH 31.3 pg (25.7-33.7); MCHC 33.6 g/dl (32.0-36.0); MEAN CELL VOLUME 93.2 fl (80-96); MEAN PLT VOLUME 8.8 fl (7.5-11.1); PLATELET COUNT 222 10^3/uL (134-434); RBC 4.09 M/mm3 (3.60-5.2); RDW 13.8 % (11.6-15.6)
[2021-01-08 09:27] LABS: ALBUMIN 3.2 g/dl (3.4-5.0); BLOOD UREA NITROGEN 14.3 mg/dL (7-18); CALCIUM 8.3 mg/dL (8.5-10.1)
[2021-01-08 09:31] LABS: CREATININE 0.7 mg/dL (0.55-1.3)
[2021-01-08 09:32] LABS: BILIRUBIN,TOTAL 0.4 mg/dL (0.2-1); TOT PROT 6.7 g/dl (6.4-8.2)
[2021-01-08] MEDS ORDERED: FLUoxetine HCL 20 MG CAPSULE PO SCH (10:00)
[2021-01-08] MEDS ORDERED: PSYLLIUM 5.85 GM PACKET PO SCH (10:00)
[2021-01-08] MEDS ORDERED: PRENATAL VITAMINS W/ FOLIC ACID TABLET (FP) PO SCH (10:00)
[2021-01-08] MEDS ORDERED: NICOTINE 7 MG/24 HOURS TOPICAL PATCH TD SCH (10:00)
[2021-01-08 12:49] VITALS: BP 131/85; PULSE 104; TEMP 98.4
[2021-01-08] MEDS ORDERED: QUEtiapine FUMARATE 400 MG TABLET PO SCH (22:00)
== END 2021-01-08 12:38 | disposition other institution (70) | DRG 774 ==
LOC: YASAS 12:12 → UNDOADMIN 16:35 → Y6N 16:35
PROVIDERS: ADMIT Allergy & Immunology; ATTEND Allergy & Immunology
PROC: HZ2ZZZZ Detoxification Services for Substance Abuse Treatment (ICD-10-PCS; principal; 2021-01-07)
DX: F10.230 Alcohol dependence with withdrawal, uncomplicated (principal); F14.20 Cocaine dependence, uncomplicated; F17.210 Nicotine dependence, cigarettes, uncomplicated; F25.9 Schizoaffective disorder, unspecified; F19.282 Other psychoactive substance dependence with psychoactive substance-induced sleep disorder; J45.909 Unspecified asthma, uncomplicated; R00.0 Tachycardia, unspecified; Z91.018 Allergy to other foods; Z87.42 Personal history of other diseases of the female genital tract; Z86.19 Personal history of other infectious and parasitic diseases; Z56.0 Unemployment, unspecified
CPT/HCPCS: 36415; 80053; 85027; 86593; 86780; C9803; U0003; U0005

== ENCOUNTER 2021-01-08 12:49 | Inpatient (IN) | payer OTHER ==
[2021-01-08] MEDS ORDERED: LOPERAMIDE HCL 2 MG CAPSULE PO PRN (13:04)
[2021-01-08] MEDS ORDERED: MAGNESIUM CITRATE 300 ML BOTTLE PO PRN (13:04)
[2021-01-08] MEDS ORDERED: MAGNESIUM HYDROX 2400MG/30ML ORAL SUSPENSION 30 ML CUP PO PRN (13:04)
[2021-01-08] MEDS ORDERED: ACETAMINOPHEN 325 MG TABLET (FP) PO PRN (13:04)
[2021-01-08] MEDS ORDERED: MENTHOL/PHENOL 1 EACH UD MM PRN (13:04)
[2021-01-08] MEDS ORDERED: MAG HYDROX/AL HYDROX/SIMETH 30 ML UNIT-DOSE CUP PO PRN (13:04)
[2021-01-08] MEDS: QUEtiapine FUMARATE 200 MG TABLET PO SCH (21:11)
[2021-01-08] MEDS: MELATONIN 5 MG TABLETS PO SCH (21:12)
[2021-01-08] MEDS: PSYLLIUM 5.85 GM PACKET PO SCH (21:12)
[2021-01-08] MEDS: BENZTROPINE MESYLATE 0.5 MG TABLET (FP) PO SCH (21:12)
[2021-01-08] MEDS: THIAMINE HCL 100 MG TABLET (FP) PO SCH (21:12)
[2021-01-09] MEDS ORDERED: PT OWN MED DRAWER 7, Y5N ONE (03:27)
[2021-01-09] MEDS: PRENATAL VITAMINS W/ FOLIC ACID TABLET (FP) PO SCH (09:33)
[2021-01-09] MEDS: BENZTROPINE MESYLATE 0.5 MG TABLET (FP) PO SCH ×2 (09:33→21:15)
[2021-01-09] MEDS: FLUoxetine HCL 10 MG TABLET PO SCH (09:33)
[2021-01-09] MEDS: NICOTINE 7 MG/24 HOURS TOPICAL PATCH TD SCH (09:34)
[2021-01-09] MEDS: IBUPROFEN 400 MG TABLET (FP) PO PRN (09:34)
[2021-01-09] MEDS: PSYLLIUM 5.85 GM PACKET PO SCH ×2 (09:36→21:16)
[2021-01-09] MEDS: THIAMINE HCL 100 MG TABLET (FP) PO SCH (21:15)
[2021-01-09] MEDS: MELATONIN 5 MG TABLETS PO SCH (21:15)
[2021-01-09] MEDS: QUEtiapine FUMARATE 200 MG TABLET PO SCH (21:15)
[2021-01-10] MEDS: PRENATAL VITAMINS W/ FOLIC ACID TABLET (FP) PO SCH (09:51)
[2021-01-10] MEDS: FLUoxetine HCL 10 MG TABLET PO SCH (09:51)
[2021-01-10] MEDS: NICOTINE 7 MG/24 HOURS TOPICAL PATCH TD SCH (09:52)
[2021-01-10] MEDS: BENZTROPINE MESYLATE 0.5 MG TABLET (FP) PO SCH ×2 (09:52→22:24)
[2021-01-10] MEDS: PSYLLIUM 5.85 GM PACKET PO SCH ×2 (09:54→22:24)
[2021-01-10] MEDS ORDERED: PT OWN MED DRAWER 7, Y5N ONE (21:02)
[2021-01-10] MEDS: THIAMINE HCL 100 MG TABLET (FP) PO SCH (22:24)
[2021-01-10] MEDS: QUEtiapine FUMARATE 200 MG TABLET PO SCH (22:24)
[2021-01-10] MEDS: MELATONIN 5 MG TABLETS PO SCH (22:25)
[2021-01-11] MEDS: PRENATAL VITAMINS W/ FOLIC ACID TABLET (FP) PO SCH (10:31)
[2021-01-11] MEDS: NICOTINE 7 MG/24 HOURS TOPICAL PATCH TD SCH (10:31)
[2021-01-11] MEDS: PSYLLIUM 5.85 GM PACKET PO SCH ×2 (10:32→21:34)
[2021-01-11] MEDS: FLUoxetine HCL 10 MG TABLET PO SCH (10:33)
[2021-01-11] MEDS: IBUPROFEN 400 MG TABLET (FP) PO PRN (10:35)
[2021-01-11] MEDS: BENZTROPINE MESYLATE 0.5 MG TABLET (FP) PO SCH (11:20)
[2021-01-11] MEDS ORDERED: PT OWN MED DRAWER 7, Y5N ONE (20:09)
[2021-01-11] MEDS: QUEtiapine FUMARATE 200 MG TABLET PO SCH (21:33)
[2021-01-11] MEDS: THIAMINE HCL 100 MG TABLET (FP) PO SCH (21:33)
[2021-01-11] MEDS: MELATONIN 5 MG TABLETS PO SCH (21:34)
[2021-01-11] MEDS: BENZTROPINE MESYLATE 1 MG TABLET PO SCH (21:34)
[2021-01-12] MEDS: BENZTROPINE MESYLATE 0.5 MG TABLET (FP) PO SCH (11:29)
[2021-01-12] MEDS: NICOTINE 7 MG/24 HOURS TOPICAL PATCH TD SCH (11:29)
[2021-01-12] MEDS: PRENATAL VITAMINS W/ FOLIC ACID TABLET (FP) PO SCH (11:29)
[2021-01-12] MEDS: FLUoxetine HCL 10 MG TABLET PO SCH (11:30)
[2021-01-12] MEDS: PSYLLIUM 5.85 GM PACKET PO SCH ×2 (11:30→21:27)
[2021-01-12] MEDS: BENZTROPINE MESYLATE 1 MG TABLET PO SCH ×2 (11:31→21:25)
[2021-01-12] MEDS: QUEtiapine FUMARATE 300 MG TABLET PO SCH (21:26)
[2021-01-12] MEDS: MELATONIN 5 MG TABLETS PO SCH (21:26)
[2021-01-12] MEDS: THIAMINE HCL 100 MG TABLET (FP) PO SCH (21:26)
[2021-01-13] MEDS: PRENATAL VITAMINS W/ FOLIC ACID TABLET (FP) PO SCH (10:54)
[2021-01-13] MEDS: NICOTINE 7 MG/24 HOURS TOPICAL PATCH TD SCH (10:55)
[2021-01-13] MEDS: PSYLLIUM 5.85 GM PACKET PO SCH ×2 (10:56→21:53)
[2021-01-13] MEDS: BENZTROPINE MESYLATE 1 MG TABLET PO SCH ×2 (10:57→21:54)
[2021-01-13] MEDS: FLUoxetine HCL 10 MG TABLET PO SCH (10:58)
[2021-01-13] MEDS ORDERED: PT OWN MED DRAWER 7, Y5N ONE (20:41)
[2021-01-13] MEDS: THIAMINE HCL 100 MG TABLET (FP) PO SCH (21:54)
[2021-01-13] MEDS: QUEtiapine FUMARATE 300 MG TABLET PO SCH (21:55)
[2021-01-13] MEDS: MELATONIN 5 MG TABLETS PO SCH (21:55)
[2021-01-14] MEDS ORDERED: PT OWN MED DRAWER 7, Y5N ONE (09:00)
[2021-01-14] MEDS: FLUoxetine HCL 10 MG TABLET PO SCH (10:21)
[2021-01-14] MEDS: PSYLLIUM 5.85 GM PACKET PO SCH ×2 (10:21→21:50)
[2021-01-14] MEDS: BENZTROPINE MESYLATE 1 MG TABLET PO SCH ×2 (10:21→21:49)
[2021-01-14] MEDS: NICOTINE 7 MG/24 HOURS TOPICAL PATCH TD SCH (10:22)
[2021-01-14] MEDS: PRENATAL VITAMINS W/ FOLIC ACID TABLET (FP) PO SCH (10:22)
[2021-01-14] MEDS: QUEtiapine FUMARATE 300 MG TABLET PO SCH (21:49)
[2021-01-14] MEDS: MELATONIN 5 MG TABLETS PO SCH (21:49)
[2021-01-14] MEDS: THIAMINE HCL 100 MG TABLET (FP) PO SCH (21:49)
[2021-01-15] MEDS: PSYLLIUM 5.85 GM PACKET PO SCH ×2 (10:23→21:42)
[2021-01-15] MEDS: PRENATAL VITAMINS W/ FOLIC ACID TABLET (FP) PO SCH (10:23)
[2021-01-15] MEDS: FLUoxetine HCL 10 MG TABLET PO SCH (10:24)
[2021-01-15] MEDS: NICOTINE 7 MG/24 HOURS TOPICAL PATCH TD SCH (10:25)
[2021-01-15] MEDS: BENZTROPINE MESYLATE 1 MG TABLET PO SCH ×2 (10:26→21:42)
[2021-01-15] MEDS: QUEtiapine FUMARATE 300 MG TABLET PO SCH (21:41)
[2021-01-15] MEDS: THIAMINE HCL 100 MG TABLET (FP) PO SCH (21:41)
[2021-01-15] MEDS: MELATONIN 5 MG TABLETS PO SCH (21:42)
[2021-01-16] MEDS: PSYLLIUM 5.85 GM PACKET PO SCH ×2 (10:06→21:54)
[2021-01-16] MEDS: PRENATAL VITAMINS W/ FOLIC ACID TABLET (FP) PO SCH (10:07)
[2021-01-16] MEDS: NICOTINE 7 MG/24 HOURS TOPICAL PATCH TD SCH (10:07)
[2021-01-16] MEDS: FLUoxetine HCL 10 MG TABLET PO SCH (10:08)
[2021-01-16] MEDS: BENZTROPINE MESYLATE 1 MG TABLET PO SCH ×2 (10:08→21:53)
[2021-01-16] MEDS: QUEtiapine FUMARATE 300 MG TABLET PO SCH (21:52)
[2021-01-16] MEDS: THIAMINE HCL 100 MG TABLET (FP) PO SCH (21:53)
[2021-01-16] MEDS: MELATONIN 5 MG TABLETS PO SCH (21:53)
[2021-01-17] MEDS: PRENATAL VITAMINS W/ FOLIC ACID TABLET (FP) PO SCH (10:30)
[2021-01-17] MEDS: NICOTINE 7 MG/24 HOURS TOPICAL PATCH TD SCH (10:30)
[2021-01-17] MEDS: BENZTROPINE MESYLATE 1 MG TABLET PO SCH ×2 (10:31→21:31)
[2021-01-17] MEDS: FLUoxetine HCL 10 MG TABLET PO SCH (10:32)
[2021-01-17] MEDS: PSYLLIUM 5.85 GM PACKET PO SCH ×2 (10:32→21:32)
[2021-01-17] MEDS: MELATONIN 5 MG TABLETS PO SCH (21:31)
[2021-01-17] MEDS: QUEtiapine FUMARATE 300 MG TABLET PO SCH (21:31)
[2021-01-17] MEDS: THIAMINE HCL 100 MG TABLET (FP) PO SCH (21:31)
[2021-01-18 07:18] VITALS: PULSE 81
[2021-01-18] MEDS: NICOTINE 7 MG/24 HOURS TOPICAL PATCH TD SCH (10:26)
[2021-01-18] MEDS: FLUoxetine HCL 10 MG TABLET PO SCH (10:26)
[2021-01-18] MEDS: PRENATAL VITAMINS W/ FOLIC ACID TABLET (FP) PO SCH (10:26)
[2021-01-18] MEDS: BENZTROPINE MESYLATE 1 MG TABLET PO SCH ×2 (10:26→21:29)
[2021-01-18] MEDS: PSYLLIUM 5.85 GM PACKET PO SCH ×2 (10:27→21:29)
[2021-01-18] MEDS ORDERED: PT OWN MED DRAWER 7, Y5N ONE (20:32)
[2021-01-18] MEDS: MELATONIN 5 MG TABLETS PO SCH (21:29)
[2021-01-18] MEDS: QUEtiapine FUMARATE 300 MG TABLET PO SCH (21:29)
[2021-01-18] MEDS: THIAMINE HCL 100 MG TABLET (FP) PO SCH (21:29)
[2021-01-19 07:29] VITALS: BP 138/79; TEMP 97.1
[2021-01-19] MEDS: PRENATAL VITAMINS W/ FOLIC ACID TABLET (FP) PO SCH (10:27)
[2021-01-19] MEDS: PSYLLIUM 5.85 GM PACKET PO SCH (10:27)
[2021-01-19] MEDS: NICOTINE 7 MG/24 HOURS TOPICAL PATCH TD SCH (10:28)
[2021-01-19] MEDS: FLUoxetine HCL 10 MG TABLET PO SCH (10:28)
[2021-01-19] MEDS: BENZTROPINE MESYLATE 1 MG TABLET PO SCH (10:28)
[2021-01-19] MEDS ORDERED: PENICILLIN G BENZATHINE 2,400,000 UNIT/4 ML PFS IM ONE (16:07)
[2021-01-19] MEDS ORDERED: PT OWN MED DRAWER 7, Y5N ONE (18:08)
== END 2021-01-19 20:37 | disposition home or self-care (01) | DRG 772 ==
LOC: YASAS 12:49 → Y5N 12:50
PROVIDERS: ADMIT Allergy & Immunology; ATTEND Allergy & Immunology
PROC: HZ42ZZZ Group Counseling for Substance Abuse Treatment, Cognitive-Behavioral (ICD-10-PCS; principal; 2021-01-08)
DX: F10.20 Alcohol dependence, uncomplicated (principal); F14.20 Cocaine dependence, uncomplicated; F17.210 Nicotine dependence, cigarettes, uncomplicated; F25.9 Schizoaffective disorder, unspecified; F19.282 Other psychoactive substance dependence with psychoactive substance-induced sleep disorder; F19.24 Other psychoactive substance dependence with psychoactive substance-induced mood disorder; J45.909 Unspecified asthma, uncomplicated

== ENCOUNTER 2021-03-08 14:09 | Inpatient (IN) | payer OTHER ==
[2021-03-08] MEDS ORDERED: NICOTINE 21 MG/24 HOURS TOPICAL PATCH TD PRN (15:57)
[2021-03-08] MEDS ORDERED: MENTHOL/PHENOL 1 EACH UD MM PRN (15:57)
[2021-03-08] MEDS ORDERED: BISMUTH SUBSALICYLATE 524 MG/30 ML PO PRN (15:57)
[2021-03-08] MEDS ORDERED: MAG HYDROX/AL HYDROX/SIMETH 30 ML UNIT-DOSE CUP PO PRN (15:57)
[2021-03-08] MEDS ORDERED: ONDANSETRON *ODT* 4 MG TABLET SL PRN (15:57)
[2021-03-08] MEDS ORDERED: MAGNESIUM HYDROX 2400MG/30ML ORAL SUSPENSION 30 ML CUP PO PRN (15:57)
[2021-03-08] MEDS ORDERED: MAGNESIUM CITRATE 300 ML BOTTLE PO PRN (15:57)
[2021-03-08] MEDS ORDERED: diazePAM 5 MG TABLET PO PRN (15:57)
[2021-03-08] MEDS ORDERED: METHOCARBAMOL 500 MG TABLET PO PRN (15:57)
[2021-03-08] MEDS ORDERED: ACETAMINOPHEN 325 MG TABLET (FP) PO PRN (15:57)
[2021-03-08 15:58] VITALS: BMI 32.1
[2021-03-08] MEDS: diazePAM 5 MG TABLET PO SCH ×2 (18:07→22:28)
[2021-03-08] MEDS: hydrOXYzine PAMOATE 25 MG CAPSULE (FP) PO SCH ×2 (18:07→22:28)
[2021-03-08] MEDS: IBUPROFEN 400 MG TABLET (FP) PO PRN (18:08)
[2021-03-08] MEDS: MELATONIN 5 MG TABLETS PO SCH (22:28)
[2021-03-08] MEDS: THIAMINE HCL 100 MG TABLET (FP) PO SCH (22:28)
[2021-03-09] MEDS: hydrOXYzine PAMOATE 25 MG CAPSULE (FP) PO SCH ×5 (05:38→22:12)
[2021-03-09] MEDS: diazePAM 5 MG TABLET PO SCH ×4 (05:39→22:13)
[2021-03-09] MEDS: ACETAMINOPHEN 325 MG TABLET (FP) PO PRN ×2 (05:40→17:49)
[2021-03-09 09:56] LABS: CALCIUM 8.3 mg/dL (8.5-10.1)
[2021-03-09 09:57] LABS: ALBUMIN 3.2 g/dl (3.4-5.0); BLOOD UREA NITROGEN 16.9 mg/dL (7-18)
[2021-03-09 09:58] LABS: HEMATOCRIT 39.1 % (32.4-45.2); MCH 31.3 pg (25.7-33.7); MCHC 33.4 g/dl (32.0-36.0); MEAN CELL VOLUME 93.8 fl (80-96); MEAN PLT VOLUME 8.6 fl (7.5-11.1); PLATELET COUNT 253 10^3/uL (134-434); RBC 4.17 M/mm3 (3.60-5.2); RDW 14.6 % (11.6-15.6); WHITE BLOOD COUNT 3.4 K/mm3 (4.0-10.0)
[2021-03-09 10:00] LABS: CREATININE 0.7 mg/dL (0.55-1.3)
[2021-03-09 10:02] LABS: BILIRUBIN,TOTAL 0.2 mg/dL (0.2-1); TOT PROT 6.9 g/dl (6.4-8.2)
[2021-03-09] MEDS: NICOTINE 10 MG CARTRIDGE (INHALER) IH PRN (10:23)
[2021-03-09] MEDS: PRENATAL VITAMINS W/ FOLIC ACID TABLET (FP) PO SCH (10:23)
[2021-03-09] MEDS: IBUPROFEN 400 MG TABLET (FP) PO PRN (19:09)
[2021-03-09] MEDS: QUEtiapine FUMARATE 300 MG TABLET PO SCH (22:12)
[2021-03-09] MEDS: THIAMINE HCL 100 MG TABLET (FP) PO SCH (22:12)
[2021-03-09] MEDS: MELATONIN 5 MG TABLETS PO SCH (22:12)
[2021-03-10] MEDS: diazePAM 5 MG TABLET PO SCH ×3 (07:55→22:23)
[2021-03-10] MEDS: hydrOXYzine PAMOATE 25 MG CAPSULE (FP) PO SCH ×2 (07:55→10:39)
[2021-03-10] MEDS: ACETAMINOPHEN 325 MG TABLET (FP) PO PRN (10:38)
[2021-03-10] MEDS: FLUoxetine HCL 20 MG CAPSULE PO SCH (10:39)
[2021-03-10] MEDS: PRENATAL VITAMINS W/ FOLIC ACID TABLET (FP) PO SCH (10:39)
[2021-03-10] MEDS ORDERED: hydrOXYzine PAMOATE 25 MG CAPSULE (FP) PO PRN (13:36)
[2021-03-10] MEDS: IBUPROFEN 400 MG TABLET (FP) PO PRN (18:53)
[2021-03-10] MEDS: QUEtiapine FUMARATE 300 MG TABLET PO SCH (22:22)
[2021-03-10] MEDS: THIAMINE HCL 100 MG TABLET (FP) PO SCH (22:22)
[2021-03-10] MEDS: MELATONIN 5 MG TABLETS PO SCH (22:22)
[2021-03-11] MEDS: diazePAM 5 MG TABLET PO SCH ×2 (06:33→17:53)
[2021-03-11] MEDS: ACETAMINOPHEN 325 MG TABLET (FP) PO PRN ×2 (10:33→17:53)
[2021-03-11] MEDS: FLUoxetine HCL 20 MG CAPSULE PO SCH (10:33)
[2021-03-11] MEDS: PRENATAL VITAMINS W/ FOLIC ACID TABLET (FP) PO SCH (10:33)
[2021-03-11] MEDS: NICOTINE 10 MG CARTRIDGE (INHALER) IH PRN (10:36)
[2021-03-11] MEDS ORDERED: PENICILLIN G BENZATHINE 2,400,000 UNIT/4 ML PFS IM ONE (14:03)
[2021-03-11 18:03] VITALS: BP 127/81; PULSE 95; TEMP 96.9
[2021-03-11] MEDS ORDERED: metroNIDAZOLE 0.75% VAGINAL GEL 70 GM TUBE VG SCH (22:00)
[2021-03-12] MEDS ORDERED: diazePAM 5 MG TABLET PO ONE (06:00)
== END 2021-03-11 18:25 | disposition left against medical advice (07) | DRG 770 ==
LOC: YASAS 14:09 → Y3N 16:53
PROVIDERS: ADMIT Allergy & Immunology; ATTEND Allergy & Immunology
PROC: HZ2ZZZZ Detoxification Services for Substance Abuse Treatment (ICD-10-PCS; principal; 2021-03-08)
DX: F10.230 Alcohol dependence with withdrawal, uncomplicated (principal); F14.20 Cocaine dependence, uncomplicated; F12.20 Cannabis dependence, uncomplicated; F17.210 Nicotine dependence, cigarettes, uncomplicated; F25.9 Schizoaffective disorder, unspecified; J45.909 Unspecified asthma, uncomplicated; E66.9 Obesity, unspecified; Z68.32 Body mass index [BMI] 32.0-32.9, adult; Z86.19 Personal history of other infectious and parasitic diseases
CPT/HCPCS: 36415; 80053; 85027; 86593; 86780; C9803; U0003; U0005

== ENCOUNTER 2021-04-11 15:59 | Inpatient (IN) | payer OTHER ==
[2021-04-11 18:06] VITALS: BMI 32.1
[2021-04-11] MEDS ORDERED: ACETAMINOPHEN 325 MG TABLET (FP) PO PRN (18:35)
[2021-04-11] MEDS ORDERED: ONDANSETRON *ODT* 4 MG TABLET SL PRN (18:35)
[2021-04-11] MEDS ORDERED: MAG HYDROX/AL HYDROX/SIMETH 30 ML UNIT-DOSE CUP PO PRN (18:35)
[2021-04-11] MEDS ORDERED: MAGNESIUM HYDROX 2400MG/30ML ORAL SUSPENSION 30 ML CUP PO PRN (18:35)
[2021-04-11] MEDS ORDERED: IBUPROFEN 400 MG TABLET (FP) PO PRN (18:35)
[2021-04-11] MEDS ORDERED: MENTHOL/PHENOL 1 EACH UD MM PRN (18:35)
[2021-04-11] MEDS ORDERED: BISMUTH SUBSALICYLATE 524 MG/30 ML PO PRN (18:35)
[2021-04-11] MEDS ORDERED: MAGNESIUM CITRATE 300 ML BOTTLE PO PRN (18:35)
[2021-04-11] MEDS ORDERED: diazePAM 5 MG TABLET PO PRN (18:36)
[2021-04-11] MEDS ORDERED: ALBUTEROL SO4 HFA INHALER IH PRN (18:37)
[2021-04-11] MEDS: ACETAMINOPHEN 325 MG TABLET (FP) PO PRN (20:38)
[2021-04-11] MEDS: THIAMINE HCL 100 MG TABLET (FP) PO SCH (22:56)
[2021-04-11] MEDS: diazePAM 5 MG TABLET PO SCH (22:56)
[2021-04-11] MEDS: MELATONIN 5 MG TABLETS PO SCH (22:56)
[2021-04-12] MEDS: diazePAM 5 MG TABLET PO SCH ×4 (06:06→22:24)
[2021-04-12] MEDS: ACETAMINOPHEN 325 MG TABLET (FP) PO PRN ×2 (06:09→17:53)
[2021-04-12] MEDS: NICOTINE 7 MG/24 HOURS TOPICAL PATCH TD SCH (10:05)
[2021-04-12] MEDS: PRENATAL VITAMINS W/ FOLIC ACID TABLET (FP) PO SCH (10:06)
[2021-04-12] MEDS: hydrOXYzine PAMOATE 25 MG CAPSULE (FP) PO PRN ×2 (10:06→22:23)
[2021-04-12] MEDS: PSYLLIUM 5.85 GM PACKET PO SCH ×2 (10:07→22:24)
[2021-04-12 10:57] LABS: HEMATOCRIT 38.1 % (32.4-45.2); HEMOGLOBIN 12.6 GM/dL (10.7-15.3); MCHC 33.1 g/dl (32.0-36.0); MEAN CELL VOLUME 93.6 fl (80-96); MEAN PLT VOLUME 8.5 fl (7.5-11.1); PLATELET COUNT 218 10^3/uL (134-434); RBC 4.07 M/mm3 (3.60-5.2); RDW 14.4 % (11.6-15.6); WHITE BLOOD COUNT 3.3 K/mm3 (4.0-10.0)
[2021-04-12 11:01] LABS: CALCIUM 8.7 mg/dL (8.5-10.1)
[2021-04-12 11:02] LABS: ALBUMIN 3.4 g/dl (3.4-5.0)
[2021-04-12 11:05] LABS: BLOOD UREA NITROGEN 22.4 mg/dL (7-18); CREATININE 0.6 mg/dL (0.55-1.3)
[2021-04-12 11:07] LABS: BILIRUBIN,TOTAL 0.3 mg/dL (0.2-1)
[2021-04-12 11:10] LABS: TOT PROT 7.3 g/dl (6.4-8.2)
[2021-04-12] MEDS ORDERED: FLU VACC QS2021-22(6MOS UP)/PF 60 MCG/0.5 ML SYRINGE IM ONE (13:00)
[2021-04-12] MEDS: MELATONIN 5 MG TABLETS PO SCH (22:22)
[2021-04-12] MEDS: THIAMINE HCL 100 MG TABLET (FP) PO SCH (22:22)
[2021-04-12] MEDS: METHOCARBAMOL 500 MG TABLET PO PRN (22:23)
[2021-04-13] MEDS: diazePAM 5 MG TABLET PO SCH ×3 (06:40→22:31)
[2021-04-13] MEDS ORDERED: MASKS NR ONE (06:43)
[2021-04-13] MEDS: PSYLLIUM 5.85 GM PACKET PO SCH ×2 (10:13→22:34)
[2021-04-13] MEDS: PRENATAL VITAMINS W/ FOLIC ACID TABLET (FP) PO SCH (10:13)
[2021-04-13] MEDS: ACETAMINOPHEN 325 MG TABLET (FP) PO PRN (10:14)
[2021-04-13] MEDS: NICOTINE 7 MG/24 HOURS TOPICAL PATCH TD SCH (10:52)
[2021-04-13] MEDS ORDERED: NAPROXEN 500 MG TABLET PO PRN (11:17)
[2021-04-13] MEDS: FLUoxetine HCL 10 MG CAPSULE PO SCH (11:45)
[2021-04-13] MEDS: THIAMINE HCL 100 MG TABLET (FP) PO SCH (22:31)
[2021-04-13] MEDS: QUEtiapine FUMARATE 400 MG TABLET PO SCH (22:31)
[2021-04-13] MEDS: MELATONIN 5 MG TABLETS PO SCH (22:31)
[2021-04-13] MEDS: METHOCARBAMOL 500 MG TABLET PO PRN (22:33)
[2021-04-14] MEDS: diazePAM 5 MG TABLET PO SCH ×2 (06:47→18:19)
[2021-04-14] MEDS: PRENATAL VITAMINS W/ FOLIC ACID TABLET (FP) PO SCH (10:32)
[2021-04-14] MEDS: NICOTINE 7 MG/24 HOURS TOPICAL PATCH TD SCH (10:32)
[2021-04-14] MEDS: FLUoxetine HCL 10 MG CAPSULE PO SCH (10:32)
[2021-04-14] MEDS: PSYLLIUM 5.85 GM PACKET PO SCH ×2 (10:32→22:18)
[2021-04-14] MEDS ORDERED: PENICILLIN G BENZATHINE 2,400,000 UNIT/4 ML PFS IM ONE (11:15)
[2021-04-14] MEDS: QUEtiapine FUMARATE 400 MG TABLET PO SCH (22:18)
[2021-04-14] MEDS: THIAMINE HCL 100 MG TABLET (FP) PO SCH (22:18)
[2021-04-14] MEDS: MELATONIN 5 MG TABLETS PO SCH (22:18)
[2021-04-15] MEDS ORDERED: diazePAM 5 MG TABLET PO ONE (06:00)
[2021-04-15 08:51] VITALS: BP 126/64; PULSE 81; TEMP 96.7
== END 2021-04-15 08:36 | disposition home or self-care (01) | DRG 774 ==
LOC: YASAS 15:59 → Y3N 18:27
PROVIDERS: ADMIT Allergy & Immunology; ATTEND Allergy & Immunology
PROC: HZ2ZZZZ Detoxification Services for Substance Abuse Treatment (ICD-10-PCS; principal; 2021-04-11)
DX: F10.230 Alcohol dependence with withdrawal, uncomplicated (principal); F14.20 Cocaine dependence, uncomplicated; F17.210 Nicotine dependence, cigarettes, uncomplicated; F20.9 Schizophrenia, unspecified; F19.24 Other psychoactive substance dependence with psychoactive substance-induced mood disorder; A53.0 Latent syphilis, unspecified as early or late; Z86.19 Personal history of other infectious and parasitic diseases; Z91.010 Allergy to peanuts; Z91.018 Allergy to other foods
CPT/HCPCS: 36415; 80053; 81025; 85027; 86593; 86780; 90686; C9803; G0008; U0003; U0005

== ENCOUNTER 2021-05-19 12:44 | Inpatient (IN) | payer OTHER ==
[2021-05-19] MEDS ORDERED: MENTHOL/PHENOL 1 EACH UD MM PRN (13:56)
[2021-05-19] MEDS ORDERED: BISMUTH SUBSALICYLATE 524 MG/30 ML PO PRN (13:56)
[2021-05-19] MEDS ORDERED: chlordiazePOXIDE HCL 25 MG CAPSULE PO PRN (13:56)
[2021-05-19] MEDS ORDERED: MAGNESIUM CITRATE 300 ML BOTTLE PO PRN (13:56)
[2021-05-19] MEDS ORDERED: ACETAMINOPHEN 325 MG TABLET (FP) PO PRN (13:56)
[2021-05-19] MEDS ORDERED: MAG HYDROX/AL HYDROX/SIMETH 30 ML UNIT-DOSE CUP PO PRN (13:56)
[2021-05-19] MEDS ORDERED: IBUPROFEN 400 MG TABLET (FP) PO PRN (13:56)
[2021-05-19] MEDS ORDERED: NICOTINE 10 MG CARTRIDGE (INHALER) IH PRN (13:56)
[2021-05-19 14:27] VITALS: BMI 33.6
[2021-05-19] MEDS: hydrOXYzine PAMOATE 25 MG CAPSULE (FP) PO SCH ×2 (15:49→17:43)
[2021-05-19] MEDS: chlordiazePOXIDE HCL 25 MG CAPSULE PO SCH (17:44)
[2021-05-19] MEDS: MAGNESIUM HYDROX 2400MG/30ML ORAL SUSPENSION 30 ML CUP PO PRN (19:32)
[2021-05-19] MEDS: ONDANSETRON *ODT* 4 MG TABLET SL PRN (19:34)
[2021-05-19] MEDS ORDERED: ALBUTEROL SO4 HFA INHALER IH PRN (19:36)
[2021-05-20] MEDS: QUEtiapine FUMARATE 400 MG TABLET PO SCH ×2 (00:06→21:53)
[2021-05-20] MEDS: hydrOXYzine PAMOATE 25 MG CAPSULE (FP) PO SCH ×6 (00:07→21:52)
[2021-05-20] MEDS: THIAMINE HCL 100 MG TABLET (FP) PO SCH ×2 (00:07→21:51)
[2021-05-20] MEDS: chlordiazePOXIDE HCL 25 MG CAPSULE PO SCH ×5 (00:28→22:00)
[2021-05-20] MEDS: MELATONIN 5 MG TABLETS PO SCH ×2 (00:30→21:51)
[2021-05-20] MEDS: ACETAMINOPHEN 325 MG TABLET (FP) PO PRN ×2 (06:42→18:16)
[2021-05-20] MEDS: ONDANSETRON *ODT* 4 MG TABLET SL PRN ×2 (06:43→18:20)
[2021-05-20] MEDS: PRENATAL VITAMINS W/ FOLIC ACID TABLET (FP) PO SCH (10:25)
[2021-05-20] MEDS: METHOCARBAMOL 500 MG TABLET PO PRN ×2 (10:26→18:20)
[2021-05-20 10:30] LABS: HEMATOCRIT 37.1 % (32.4-45.2); HEMOGLOBIN 12.6 GM/dL (10.7-15.3); MCH 31.8 pg (25.7-33.7); MEAN CELL VOLUME 93.5 fl (80-96); MEAN PLT VOLUME 9.6 fl (7.5-11.1); PLATELET COUNT 221 10^3/uL (134-434); RBC 3.96 M/mm3 (3.60-5.2); WHITE BLOOD COUNT 3.5 K/mm3 (4.0-10.0)
[2021-05-20 10:39] LABS: ALBUMIN 3.5 g/dl (3.4-5.0); BLOOD UREA NITROGEN 20.1 mg/dL (7-18); CALCIUM 8.7 mg/dL (8.5-10.1)
[2021-05-20 10:42] LABS: CREATININE 0.7 mg/dL (0.55-1.3)
[2021-05-20 10:44] LABS: BILIRUBIN,TOTAL 0.5 mg/dL (0.2-1); TOT PROT 7.2 g/dl (6.4-8.2)
[2021-05-20] MEDS: FLUoxetine HCL 10 MG CAPSULE PO SCH (12:51)
[2021-05-20] MEDS ORDERED: PENICILLIN G BENZATHINE 2,400,000 UNIT/4 ML PFS IM ONE ×2 (13:24→19:45)
[2021-05-20] MEDS ORDERED: DOCUSATE SODIUM 100 MG CAPSULE (FP) PO PRN (13:35)
[2021-05-20] MEDS: MAGNESIUM HYDROX 2400MG/30ML ORAL SUSPENSION 30 ML CUP PO PRN (21:56)
[2021-05-21] MEDS: chlordiazePOXIDE HCL 25 MG CAPSULE PO SCH ×4 (06:24→22:04)
[2021-05-21] MEDS: hydrOXYzine PAMOATE 25 MG CAPSULE (FP) PO SCH ×5 (06:24→22:05)
[2021-05-21] MEDS: METHOCARBAMOL 500 MG TABLET PO PRN ×2 (06:25→22:07)
[2021-05-21] MEDS: PRENATAL VITAMINS W/ FOLIC ACID TABLET (FP) PO SCH (10:18)
[2021-05-21] MEDS: FLUoxetine HCL 10 MG CAPSULE PO SCH (10:19)
[2021-05-21 13:40] LABS: HIV INTERPRETATION NEGATIVE (NEGATIVE)
[2021-05-21] MEDS: QUEtiapine FUMARATE 400 MG TABLET PO SCH (22:05)
[2021-05-21] MEDS: MELATONIN 5 MG TABLETS PO SCH (22:05)
[2021-05-21] MEDS: THIAMINE HCL 100 MG TABLET (FP) PO SCH (22:05)
[2021-05-21] MEDS: SENNOSIDES/DOCUSATE COMBO (SENNA PLUS) TABLET (UD) PO SCH (23:16)
[2021-05-22] MEDS ORDERED: chlordiazePOXIDE HCL 10 MG CAPSULE PO PRN
[2021-05-22] MEDS: hydrOXYzine PAMOATE 25 MG CAPSULE (FP) PO SCH ×5 (06:52→22:06)
[2021-05-22] MEDS: chlordiazePOXIDE HCL 10 MG CAPSULE PO SCH ×4 (06:53→22:05)
[2021-05-22] MEDS: ACETAMINOPHEN 325 MG TABLET (FP) PO PRN (06:54)
[2021-05-22] MEDS: FLUoxetine HCL 10 MG CAPSULE PO SCH (10:21)
[2021-05-22] MEDS: SENNOSIDES/DOCUSATE COMBO (SENNA PLUS) TABLET (UD) PO SCH ×2 (10:21→22:05)
[2021-05-22] MEDS: PRENATAL VITAMINS W/ FOLIC ACID TABLET (FP) PO SCH (10:21)
[2021-05-22] MEDS: MELATONIN 5 MG TABLETS PO SCH (22:05)
[2021-05-22] MEDS: QUEtiapine FUMARATE 400 MG TABLET PO SCH (22:06)
[2021-05-22] MEDS: THIAMINE HCL 100 MG TABLET (FP) PO SCH (22:06)
[2021-05-22] MEDS: MAGNESIUM HYDROX 2400MG/30ML ORAL SUSPENSION 30 ML CUP PO PRN (22:08)
[2021-05-23] MEDS: chlordiazePOXIDE HCL 10 MG CAPSULE PO SCH ×2 (06:23→18:17)
[2021-05-23] MEDS: hydrOXYzine PAMOATE 25 MG CAPSULE (FP) PO SCH ×5 (06:23→22:08)
[2021-05-23] MEDS: ACETAMINOPHEN 325 MG TABLET (FP) PO PRN (06:24)
[2021-05-23] MEDS: PRENATAL VITAMINS W/ FOLIC ACID TABLET (FP) PO SCH (10:16)
[2021-05-23] MEDS: FLUoxetine HCL 10 MG CAPSULE PO SCH (10:16)
[2021-05-23] MEDS: SENNOSIDES/DOCUSATE COMBO (SENNA PLUS) TABLET (UD) PO SCH ×2 (10:57→22:08)
[2021-05-23] MEDS: MELATONIN 5 MG TABLETS PO SCH (22:08)
[2021-05-23] MEDS: THIAMINE HCL 100 MG TABLET (FP) PO SCH (22:08)
[2021-05-23] MEDS: QUEtiapine FUMARATE 400 MG TABLET PO SCH (23:37)
[2021-05-24] MEDS ORDERED: chlordiazePOXIDE HCL 10 MG CAPSULE PO ONE (05:00)
[2021-05-24 06:47] VITALS: BP 118/68; PULSE 84; TEMP 96.8
[2021-05-24] MEDS: hydrOXYzine PAMOATE 25 MG CAPSULE (FP) PO SCH (06:49)
== END 2021-05-24 08:49 | disposition home or self-care (01) | DRG 774 ==
LOC: YASAS 12:44 → Y6N 15:15
PROVIDERS: ADMIT Allergy & Immunology; ATTEND Allergy & Immunology
PROC: HZ2ZZZZ Detoxification Services for Substance Abuse Treatment (ICD-10-PCS; principal; 2021-05-19)
DX: F10.230 Alcohol dependence with withdrawal, uncomplicated (principal); F14.20 Cocaine dependence, uncomplicated; F12.10 Cannabis abuse, uncomplicated; F17.210 Nicotine dependence, cigarettes, uncomplicated; F20.0 Paranoid schizophrenia; F41.9 Anxiety disorder, unspecified; F32.A Depression, unspecified; F19.282 Other psychoactive substance dependence with psychoactive substance-induced sleep disorder; J45.909 Unspecified asthma, uncomplicated; R76.8 Other specified abnormal immunological findings in serum; D72.819 Decreased white blood cell count, unspecified; N89.8 Other specified noninflammatory disorders of vagina; Z91.010 Allergy to peanuts; Z86.19 Personal history of other infectious and parasitic diseases; Z87.42 Personal history of other diseases of the female genital tract; Z56.0 Unemployment, unspecified
CPT/HCPCS: 36415; 80053; 81025; 85027; 86593; 86780; 87389; C9803; Q0162; U0003; U0005

== ENCOUNTER 2021-06-17 13:53 | Inpatient (IN) | payer OTHER ==
[2021-06-17] MEDS ORDERED: NICOTINE 10 MG CARTRIDGE (INHALER) IH PRN (15:51)
[2021-06-17] MEDS ORDERED: IBUPROFEN 400 MG TABLET (FP) PO PRN (15:51)
[2021-06-17] MEDS ORDERED: MAG HYDROX/AL HYDROX/SIMETH 30 ML UNIT-DOSE CUP PO PRN (15:51)
[2021-06-17] MEDS ORDERED: MAGNESIUM CITRATE 300 ML BOTTLE PO PRN (15:51)
[2021-06-17] MEDS ORDERED: BISMUTH SUBSALICYLATE 524 MG/30 ML PO PRN (15:51)
[2021-06-17] MEDS ORDERED: MAGNESIUM HYDROX 2400MG/30ML ORAL SUSPENSION 30 ML CUP PO PRN (15:51)
[2021-06-17] MEDS ORDERED: MENTHOL/PHENOL 1 EACH UD MM PRN (15:51)
[2021-06-17] MEDS ORDERED: ACETAMINOPHEN 325 MG TABLET (FP) PO PRN (15:51)
[2021-06-17] MEDS ORDERED: ONDANSETRON *ODT* 4 MG TABLET SL PRN (15:51)
[2021-06-17 16:08] VITALS: BMI 33.6
[2021-06-17] MEDS ORDERED: ALBUTEROL SO4 HFA INHALER IH PRN (18:51)
[2021-06-17] MEDS: hydrOXYzine PAMOATE 25 MG CAPSULE (FP) PO SCH ×2 (19:33→22:15)
[2021-06-17] MEDS: ACETAMINOPHEN 325 MG TABLET (FP) PO PRN ×2 (19:34→22:17)
[2021-06-17] MEDS ORDERED: MELATONIN 5 MG TABLETS PO SCH (22:00)
[2021-06-17] MEDS ORDERED: QUEtiapine FUMARATE 100 MG TABLET (FP) PO SCH (22:00)
[2021-06-17] MEDS: THIAMINE HCL 100 MG TABLET (FP) PO SCH (22:15)
[2021-06-17] MEDS: BENZTROPINE MESYLATE 1 MG TABLET PO SCH (22:16)
[2021-06-17] MEDS: diazePAM 5 MG TABLET PO SCH (22:18)
[2021-06-18] MEDS: diazePAM 5 MG TABLET PO SCH ×4 (05:08→22:55)
[2021-06-18] MEDS: METHOCARBAMOL 500 MG TABLET PO PRN ×2 (07:07→18:02)
[2021-06-18] MEDS: hydrOXYzine PAMOATE 25 MG CAPSULE (FP) PO SCH ×5 (07:07→22:55)
[2021-06-18] MEDS: PRENATAL VITAMINS W/ FOLIC ACID TABLET (FP) PO SCH (10:57)
[2021-06-18] MEDS: BENZTROPINE MESYLATE 1 MG TABLET PO SCH (10:57)
[2021-06-18] MEDS: FLUoxetine HCL 10 MG CAPSULE PO SCH (13:33)
[2021-06-18] MEDS: ACETAMINOPHEN 325 MG TABLET (FP) PO PRN (13:37)
[2021-06-18] MEDS: MINERAL OIL/PETROLAT/WATER TOPICAL CREAM 113 GM JAR TP SCH ×2 (16:08→22:54)
[2021-06-18] MEDS: PSYLLIUM 5.85 GM PACKET PO SCH ×2 (16:09→22:54)
[2021-06-18] MEDS: QUEtiapine FUMARATE 100 MG TABLET (FP) PO SCH (22:55)
[2021-06-18] MEDS: THIAMINE HCL 100 MG TABLET (FP) PO SCH (22:55)
[2021-06-19] MEDS: hydrOXYzine PAMOATE 25 MG CAPSULE (FP) PO SCH ×5 (07:01→23:04)
[2021-06-19] MEDS: diazePAM 5 MG TABLET PO SCH ×3 (07:01→22:59)
[2021-06-19] MEDS: FLUoxetine HCL 10 MG CAPSULE PO SCH (10:37)
[2021-06-19] MEDS: PRENATAL VITAMINS W/ FOLIC ACID TABLET (FP) PO SCH (10:38)
[2021-06-19] MEDS: MINERAL OIL/PETROLAT/WATER TOPICAL CREAM 113 GM JAR TP SCH ×2 (10:38→22:05)
[2021-06-19] MEDS: PSYLLIUM 5.85 GM PACKET PO SCH ×2 (10:39→22:05)
[2021-06-19] MEDS: diazePAM 5 MG TABLET PO PRN ×2 (10:40→18:20)
[2021-06-19 11:26] LABS: HEMATOCRIT 42.1 % (32.4-45.2); HEMOGLOBIN 13.6 GM/dL (10.7-15.3); MCH 29.5 pg (25.7-33.7); MCHC 32.3 g/dl (32.0-36.0); MEAN CELL VOLUME 91.3 fl (80-96); MEAN PLT VOLUME 8.8 fl (7.5-11.1); PLATELET COUNT 260 10^3/uL (134-434); RBC 4.62 M/mm3 (3.60-5.2); RDW 13.8 % (11.6-15.6); WHITE BLOOD COUNT 2.7 K/mm3 (4.0-10.0)
[2021-06-19 11:32] LABS: ALBUMIN 3.8 g/dl (3.4-5.0); BLOOD UREA NITROGEN 9.7 mg/dL (7-18); CALCIUM 9.9 mg/dL (8.5-10.1)
[2021-06-19 11:35] LABS: CREATININE 0.7 mg/dL (0.55-1.3)
[2021-06-19 11:37] LABS: BILIRUBIN,TOTAL 0.4 mg/dL (0.2-1); TOT PROT 7.4 g/dl (6.4-8.2)
[2021-06-19] MEDS: ACETAMINOPHEN 325 MG TABLET (FP) PO PRN (18:54)
[2021-06-19] MEDS: THIAMINE HCL 100 MG TABLET (FP) PO SCH (22:05)
[2021-06-19] MEDS: QUEtiapine FUMARATE 100 MG TABLET (FP) PO SCH (22:05)
[2021-06-20] MEDS: hydrOXYzine PAMOATE 25 MG CAPSULE (FP) PO SCH ×5 (06:31→21:59)
[2021-06-20] MEDS: diazePAM 5 MG TABLET PO SCH ×2 (06:32→17:33)
[2021-06-20] MEDS: FLUoxetine HCL 10 MG CAPSULE PO SCH (10:42)
[2021-06-20] MEDS: PSYLLIUM 5.85 GM PACKET PO SCH ×2 (10:42→22:32)
[2021-06-20] MEDS: MINERAL OIL/PETROLAT/WATER TOPICAL CREAM 113 GM JAR TP SCH ×3 (10:42→22:55)
[2021-06-20] MEDS: PRENATAL VITAMINS W/ FOLIC ACID TABLET (FP) PO SCH (10:42)
[2021-06-20] MEDS ORDERED: diazePAM 5 MG TABLET PO PRN (15:51)
[2021-06-20] MEDS: METHOCARBAMOL 500 MG TABLET PO PRN (17:33)
[2021-06-20] MEDS: THIAMINE HCL 100 MG TABLET (FP) PO SCH (21:59)
[2021-06-20] MEDS: QUEtiapine FUMARATE 100 MG TABLET (FP) PO SCH (21:59)
[2021-06-21] MEDS ORDERED: diazePAM 5 MG TABLET PO ONE (06:00)
[2021-06-21] MEDS: hydrOXYzine PAMOATE 25 MG CAPSULE (FP) PO SCH ×5 (06:22→22:20)
[2021-06-21] MEDS: MINERAL OIL/PETROLAT/WATER TOPICAL CREAM 113 GM JAR TP SCH (10:55)
[2021-06-21] MEDS: PRENATAL VITAMINS W/ FOLIC ACID TABLET (FP) PO SCH (10:55)
[2021-06-21] MEDS: PSYLLIUM 5.85 GM PACKET PO SCH ×2 (10:55→22:31)
[2021-06-21] MEDS: FLUoxetine HCL 10 MG CAPSULE PO SCH (10:55)
[2021-06-21] MEDS: QUEtiapine FUMARATE 100 MG TABLET (FP) PO SCH (22:20)
[2021-06-21] MEDS: THIAMINE HCL 100 MG TABLET (FP) PO SCH (22:20)
[2021-06-22] MEDS: hydrOXYzine PAMOATE 25 MG CAPSULE (FP) PO SCH ×6 (05:10→22:33)
[2021-06-22] MEDS: PRENATAL VITAMINS W/ FOLIC ACID TABLET (FP) PO SCH (10:28)
[2021-06-22] MEDS: PSYLLIUM 5.85 GM PACKET PO SCH ×2 (10:29→22:35)
[2021-06-22] MEDS: METHOCARBAMOL 500 MG TABLET PO PRN ×3 (10:29→22:33)
[2021-06-22] MEDS: FLUoxetine HCL 10 MG CAPSULE PO SCH (10:30)
[2021-06-22] MEDS: MINERAL OIL/PETROLAT/WATER TOPICAL CREAM 113 GM JAR TP SCH ×2 (10:31→22:34)
[2021-06-22] MEDS: QUEtiapine FUMARATE 100 MG TABLET (FP) PO SCH (22:33)
[2021-06-22] MEDS: THIAMINE HCL 100 MG TABLET (FP) PO SCH (22:37)
[2021-06-23] MEDS: hydrOXYzine PAMOATE 25 MG CAPSULE (FP) PO SCH ×3 (05:58→14:13)
[2021-06-23] MEDS: METHOCARBAMOL 500 MG TABLET PO PRN (11:29)
[2021-06-23] MEDS: FLUoxetine HCL 10 MG CAPSULE PO SCH (11:29)
[2021-06-23] MEDS: PRENATAL VITAMINS W/ FOLIC ACID TABLET (FP) PO SCH (11:29)
[2021-06-23] MEDS: MINERAL OIL/PETROLAT/WATER TOPICAL CREAM 113 GM JAR TP SCH ×2 (11:29→23:06)
[2021-06-23] MEDS: PSYLLIUM 5.85 GM PACKET PO SCH ×2 (11:29→23:05)
[2021-06-23] MEDS: QUEtiapine FUMARATE 100 MG TABLET (FP) PO SCH (23:03)
[2021-06-23] MEDS: THIAMINE HCL 100 MG TABLET (FP) PO SCH (23:04)
[2021-06-24] MEDS: FLUoxetine HCL 10 MG CAPSULE PO SCH (10:01)
[2021-06-24] MEDS: PSYLLIUM 5.85 GM PACKET PO SCH ×2 (10:02→22:21)
[2021-06-24] MEDS: PRENATAL VITAMINS W/ FOLIC ACID TABLET (FP) PO SCH (10:02)
[2021-06-24] MEDS: MINERAL OIL/PETROLAT/WATER TOPICAL CREAM 113 GM JAR TP SCH ×2 (10:02→22:20)
[2021-06-24] MEDS: METHOCARBAMOL 500 MG TABLET PO PRN (17:58)
[2021-06-24] MEDS: ACETAMINOPHEN 325 MG TABLET (FP) PO PRN (17:59)
[2021-06-24] MEDS: QUEtiapine FUMARATE 100 MG TABLET (FP) PO SCH (22:35)
[2021-06-24] MEDS: THIAMINE HCL 100 MG TABLET (FP) PO SCH (22:36)
[2021-06-25] MEDS: PRENATAL VITAMINS W/ FOLIC ACID TABLET (FP) PO SCH (11:08)
[2021-06-25] MEDS: MINERAL OIL/PETROLAT/WATER TOPICAL CREAM 113 GM JAR TP SCH ×2 (11:08→23:11)
[2021-06-25] MEDS: FLUoxetine HCL 10 MG CAPSULE PO SCH (11:09)
[2021-06-25] MEDS: PSYLLIUM 5.85 GM PACKET PO SCH ×2 (11:09→23:11)
[2021-06-25] MEDS: QUEtiapine FUMARATE 100 MG TABLET (FP) PO SCH (23:08)
[2021-06-25] MEDS: THIAMINE HCL 100 MG TABLET (FP) PO SCH (23:09)
[2021-06-26] MEDS: FLUoxetine HCL 10 MG CAPSULE PO SCH (10:42)
[2021-06-26] MEDS: PRENATAL VITAMINS W/ FOLIC ACID TABLET (FP) PO SCH (10:42)
[2021-06-26] MEDS: PSYLLIUM 5.85 GM PACKET PO SCH (10:47)
[2021-06-26] MEDS: MINERAL OIL/PETROLAT/WATER TOPICAL CREAM 113 GM JAR TP SCH (10:47)
[2021-06-26 12:03] VITALS: BP 104/64; PULSE 75; TEMP 97.5
== END 2021-06-26 13:50 | disposition home or self-care (01) | DRG 773 ==
LOC: YASAS 13:53 → Y6N 19:03
PROVIDERS: ADMIT Allergy & Immunology; ATTEND Allergy & Immunology
PROC: HZ2ZZZZ Detoxification Services for Substance Abuse Treatment (ICD-10-PCS; principal; 2021-06-17)
DX: F10.230 Alcohol dependence with withdrawal, uncomplicated (principal); F13.230 Sedative, hypnotic or anxiolytic dependence with withdrawal, uncomplicated; F14.20 Cocaine dependence, uncomplicated; F12.20 Cannabis dependence, uncomplicated; F11.90 Opioid use, unspecified, uncomplicated; F17.210 Nicotine dependence, cigarettes, uncomplicated; F20.9 Schizophrenia, unspecified; F34.1 Dysthymic disorder; A53.0 Latent syphilis, unspecified as early or late; D72.819 Decreased white blood cell count, unspecified; Z20.822 Contact with and (suspected) exposure to COVID-19; Z86.19 Personal history of other infectious and parasitic diseases; Z91.010 Allergy to peanuts; Z91.018 Allergy to other foods
CPT/HCPCS: 36415; 80053; 81025; 85027; C9803; U0003; U0005

== ENCOUNTER 2021-07-14 13:52 | Inpatient (IN) | payer OTHER ==
[2021-07-14] MEDS ORDERED: NICOTINE 10 MG CARTRIDGE (INHALER) IH PRN (14:59)
[2021-07-14] MEDS ORDERED: ONDANSETRON *ODT* 4 MG TABLET SL PRN (14:59)
[2021-07-14] MEDS ORDERED: MAGNESIUM CITRATE 300 ML BOTTLE PO PRN (14:59)
[2021-07-14] MEDS ORDERED: MENTHOL/PHENOL 1 EACH UD MM PRN (14:59)
[2021-07-14] MEDS ORDERED: BISMUTH SUBSALICYLATE 524 MG/30 ML PO PRN (14:59)
[2021-07-14] MEDS ORDERED: MAG HYDROX/AL HYDROX/SIMETH 30 ML UNIT-DOSE CUP PO PRN (14:59)
[2021-07-14] MEDS ORDERED: ACETAMINOPHEN 325 MG TABLET (FP) PO PRN (14:59)
[2021-07-14 15:29] VITALS: BMI 31.1
[2021-07-14] MEDS ORDERED: MELATONIN 5 MG TABLETS PO SCH (22:00)
[2021-07-14] MEDS: hydrOXYzine PAMOATE 25 MG CAPSULE (FP) PO SCH (23:33)
[2021-07-14] MEDS: NICOTINE 14 MG/24 HOURS TOPICAL PATCH TD SCH (23:33)
[2021-07-14] MEDS: PRENATAL VITAMINS W/ FOLIC ACID TABLET (FP) PO SCH (23:33)
[2021-07-14] MEDS: THIAMINE HCL 100 MG TABLET (FP) PO SCH (23:34)
[2021-07-15] MEDS ORDERED: hydrOXYzine PAMOATE 25 MG CAPSULE (FP) PO ONE ×3 (01:37→10:46)
[2021-07-15] MEDS: hydrOXYzine PAMOATE 25 MG CAPSULE (FP) PO SCH ×6 (01:38→21:13)
[2021-07-15 10:55] LABS: HEMATOCRIT 35.7 % (32.4-45.2); HEMOGLOBIN 12.1 GM/dL (10.7-15.3); MCH 31.4 pg (25.7-33.7); MCHC 33.9 g/dl (32.0-36.0); MEAN CELL VOLUME 92.4 fl (80-96); MEAN PLT VOLUME 8.5 fl (7.5-11.1); PLATELET COUNT 196 10^3/uL (134-434); RBC 3.86 M/mm3 (3.60-5.2); RDW 13.6 % (11.6-15.6); WHITE BLOOD COUNT 3.5 K/mm3 (4.0-10.0)
[2021-07-15 10:59] LABS: ALBUMIN 3.6 g/dl (3.4-5.0); BLOOD UREA NITROGEN 15.9 mg/dL (7-18); CALCIUM 8.9 mg/dL (8.5-10.1)
[2021-07-15 11:03] LABS: CREATININE 0.7 mg/dL (0.55-1.3)
[2021-07-15 11:04] LABS: BILIRUBIN,TOTAL 0.7 mg/dL (0.2-1); TOT PROT 7.1 g/dl (6.4-8.2)
[2021-07-15] MEDS: NICOTINE 14 MG/24 HOURS TOPICAL PATCH TD SCH (11:12)
[2021-07-15] MEDS: PRENATAL VITAMINS W/ FOLIC ACID TABLET (FP) PO SCH (11:12)
[2021-07-15 11:51] LABS: HIV INTERPRETATION NEGATIVE (NEGATIVE)
[2021-07-15] MEDS: ACETAMINOPHEN 325 MG TABLET (FP) PO PRN ×2 (13:08→17:44)
[2021-07-15] MEDS: FLUoxetine HCL 10 MG CAPSULE PO SCH (14:48)
[2021-07-15] MEDS ORDERED: LIDOCAINE VISCOUS 2% ORAL/TOP 15 ML UNIT-DOSE CUP MM PRN (15:14)
[2021-07-15] MEDS: MAGNESIUM HYDROX 2400MG/30ML ORAL SUSPENSION 30 ML CUP PO PRN (15:17)
[2021-07-15] MEDS: QUEtiapine FUMARATE 300 MG TABLET PO SCH (21:12)
[2021-07-15] MEDS: THIAMINE HCL 100 MG TABLET (FP) PO SCH (21:12)
[2021-07-16] MEDS: hydrOXYzine PAMOATE 25 MG CAPSULE (FP) PO SCH ×5 (06:09→21:09)
[2021-07-16] MEDS: ACETAMINOPHEN 325 MG TABLET (FP) PO PRN (06:10)
[2021-07-16] MEDS: MAGNESIUM HYDROX 2400MG/30ML ORAL SUSPENSION 30 ML CUP PO PRN (06:11)
[2021-07-16] MEDS: NICOTINE 14 MG/24 HOURS TOPICAL PATCH TD SCH (11:16)
[2021-07-16] MEDS: PRENATAL VITAMINS W/ FOLIC ACID TABLET (FP) PO SCH (11:16)
[2021-07-16] MEDS: FLUoxetine HCL 10 MG CAPSULE PO SCH (11:17)
[2021-07-16] MEDS: METHOCARBAMOL 500 MG TABLET PO PRN (21:09)
[2021-07-16] MEDS: QUEtiapine FUMARATE 300 MG TABLET PO SCH (21:09)
[2021-07-16] MEDS: THIAMINE HCL 100 MG TABLET (FP) PO SCH (21:09)
[2021-07-17] MEDS: hydrOXYzine PAMOATE 25 MG CAPSULE (FP) PO SCH ×5 (06:39→22:27)
[2021-07-17] MEDS: MAGNESIUM HYDROX 2400MG/30ML ORAL SUSPENSION 30 ML CUP PO PRN (06:40)
[2021-07-17] MEDS: PRENATAL VITAMINS W/ FOLIC ACID TABLET (FP) PO SCH (11:07)
[2021-07-17] MEDS: FLUoxetine HCL 10 MG CAPSULE PO SCH (11:07)
[2021-07-17] MEDS: NICOTINE 14 MG/24 HOURS TOPICAL PATCH TD SCH (11:07)
[2021-07-17 17:40] LABS: PH,URINE 8.5 (5.0-8.0); URINE APPEARANCE CLOUDY; URINE BILIRUBIN NEGATIVE (NEGATIVE); URINE COLOR YELLOW; URINE GLUCOSE (UA) NEGATIVE (NEGATIVE); URINE KETONE NEGATIVE (NEGATIVE); URINE LEUK ESTERASE NEGATIVE (NEGATIVE); URINE NITRITE NEGATIVE (NEGATIVE); URINE PROTEIN NEGATIVE (NEGATIVE); URINE UROBILINOGEN 0.2 mg/dL (0.2-1.0)
[2021-07-17] MEDS: THIAMINE HCL 100 MG TABLET (FP) PO SCH (22:27)
[2021-07-17] MEDS: QUEtiapine FUMARATE 300 MG TABLET PO SCH (22:27)
[2021-07-17] MEDS: METHOCARBAMOL 500 MG TABLET PO PRN (22:28)
[2021-07-18] MEDS: hydrOXYzine PAMOATE 25 MG CAPSULE (FP) PO SCH ×5 (06:35→21:21)
[2021-07-18] MEDS: PRENATAL VITAMINS W/ FOLIC ACID TABLET (FP) PO SCH (10:53)
[2021-07-18] MEDS: FLUoxetine HCL 10 MG CAPSULE PO SCH (10:53)
[2021-07-18] MEDS: NICOTINE 14 MG/24 HOURS TOPICAL PATCH TD SCH (10:53)
[2021-07-18] MEDS: ACETAMINOPHEN 325 MG TABLET (FP) PO PRN (18:36)
[2021-07-18] MEDS: THIAMINE HCL 100 MG TABLET (FP) PO SCH (21:21)
[2021-07-18] MEDS: QUEtiapine FUMARATE 300 MG TABLET PO SCH (21:22)
[2021-07-18] MEDS: METHOCARBAMOL 500 MG TABLET PO PRN (21:22)
[2021-07-19] MEDS: hydrOXYzine PAMOATE 25 MG CAPSULE (FP) PO SCH ×5 (06:25→21:54)
[2021-07-19] MEDS: NICOTINE 14 MG/24 HOURS TOPICAL PATCH TD SCH (10:30)
[2021-07-19] MEDS: PRENATAL VITAMINS W/ FOLIC ACID TABLET (FP) PO SCH (10:30)
[2021-07-19] MEDS: METHOCARBAMOL 500 MG TABLET PO PRN ×2 (10:31→21:55)
[2021-07-19] MEDS: FLUoxetine HCL 10 MG CAPSULE PO SCH (10:53)
[2021-07-19] MEDS: QUEtiapine FUMARATE 300 MG TABLET PO SCH (21:54)
[2021-07-19] MEDS: THIAMINE HCL 100 MG TABLET (FP) PO SCH (21:54)
[2021-07-20] MEDS: hydrOXYzine PAMOATE 25 MG CAPSULE (FP) PO SCH ×3 (06:05→15:08)
[2021-07-20 06:06] LABS: SARS-CoV-2 NAA Not Detected (Not Detected)
[2021-07-20] MEDS: NICOTINE 14 MG/24 HOURS TOPICAL PATCH TD SCH (10:20)
[2021-07-20] MEDS: PRENATAL VITAMINS W/ FOLIC ACID TABLET (FP) PO SCH (10:20)
[2021-07-20] MEDS: FLUoxetine HCL 10 MG CAPSULE PO SCH (10:21)
[2021-07-20] MEDS: METHOCARBAMOL 500 MG TABLET PO PRN (10:22)
[2021-07-20] MEDS: THIAMINE HCL 100 MG TABLET (FP) PO SCH (21:14)
[2021-07-20] MEDS: QUEtiapine FUMARATE 300 MG TABLET PO SCH (21:14)
[2021-07-21] MEDS: PRENATAL VITAMINS W/ FOLIC ACID TABLET (FP) PO SCH (10:38)
[2021-07-21] MEDS: NICOTINE 14 MG/24 HOURS TOPICAL PATCH TD SCH (10:39)
[2021-07-21] MEDS: FLUoxetine HCL 10 MG CAPSULE PO SCH (10:40)
[2021-07-21] MEDS: ACETAMINOPHEN 325 MG TABLET (FP) PO PRN (17:05)
[2021-07-21] MEDS: QUEtiapine FUMARATE 300 MG TABLET PO SCH (21:15)
[2021-07-21] MEDS: THIAMINE HCL 100 MG TABLET (FP) PO SCH (21:15)
[2021-07-22] MEDS: NICOTINE 14 MG/24 HOURS TOPICAL PATCH TD SCH (10:54)
[2021-07-22] MEDS: PRENATAL VITAMINS W/ FOLIC ACID TABLET (FP) PO SCH (10:54)
[2021-07-22] MEDS: FLUoxetine HCL 10 MG CAPSULE PO SCH (10:55)
[2021-07-22] MEDS: QUEtiapine FUMARATE 300 MG TABLET PO SCH (21:21)
[2021-07-22] MEDS: THIAMINE HCL 100 MG TABLET (FP) PO SCH (21:21)
[2021-07-23] MEDS: NICOTINE 14 MG/24 HOURS TOPICAL PATCH TD SCH (10:14)
[2021-07-23] MEDS: PRENATAL VITAMINS W/ FOLIC ACID TABLET (FP) PO SCH (10:14)
[2021-07-23] MEDS: FLUoxetine HCL 10 MG CAPSULE PO SCH (10:15)
[2021-07-23] MEDS: QUEtiapine FUMARATE 300 MG TABLET PO SCH (21:56)
[2021-07-23] MEDS: ACETAMINOPHEN 325 MG TABLET (FP) PO PRN (21:56)
[2021-07-23] MEDS: THIAMINE HCL 100 MG TABLET (FP) PO SCH (21:56)
[2021-07-24] MEDS: PRENATAL VITAMINS W/ FOLIC ACID TABLET (FP) PO SCH (10:37)
[2021-07-24] MEDS: NICOTINE 14 MG/24 HOURS TOPICAL PATCH TD SCH (10:37)
[2021-07-24] MEDS: FLUoxetine HCL 10 MG CAPSULE PO SCH (10:38)
[2021-07-24] MEDS: ACETAMINOPHEN 325 MG TABLET (FP) PO PRN (10:38)
[2021-07-24] MEDS: MAGNESIUM HYDROX 2400MG/30ML ORAL SUSPENSION 30 ML CUP PO PRN (16:05)
[2021-07-24] MEDS: THIAMINE HCL 100 MG TABLET (FP) PO SCH (21:57)
[2021-07-24] MEDS: QUEtiapine FUMARATE 300 MG TABLET PO SCH (21:57)
[2021-07-25] MEDS ORDERED: MODERNA COVID-19 VACC,MRNA/PF 50 MCG/0.25 ML EACH IM ONE (10:00)
[2021-07-25] MEDS: PRENATAL VITAMINS W/ FOLIC ACID TABLET (FP) PO SCH (10:35)
[2021-07-25] MEDS: NICOTINE 14 MG/24 HOURS TOPICAL PATCH TD SCH (10:36)
[2021-07-25] MEDS: FLUoxetine HCL 10 MG CAPSULE PO SCH (10:37)
[2021-07-25] MEDS: QUEtiapine FUMARATE 300 MG TABLET PO SCH (21:28)
[2021-07-25] MEDS: THIAMINE HCL 100 MG TABLET (FP) PO SCH (21:28)
[2021-07-25] MEDS: ACETAMINOPHEN 325 MG TABLET (FP) PO PRN (22:15)
[2021-07-26] MEDS: IBUPROFEN 400 MG TABLET (FP) PO PRN (10:10)
[2021-07-26] MEDS: NICOTINE 14 MG/24 HOURS TOPICAL PATCH TD SCH (10:11)
[2021-07-26] MEDS: PRENATAL VITAMINS W/ FOLIC ACID TABLET (FP) PO SCH (10:11)
[2021-07-26] MEDS: FLUoxetine HCL 10 MG CAPSULE PO SCH (10:12)
[2021-07-26] MEDS: QUEtiapine FUMARATE 300 MG TABLET PO SCH (21:41)
[2021-07-26] MEDS: ACETAMINOPHEN 325 MG TABLET (FP) PO PRN (21:42)
[2021-07-26] MEDS: THIAMINE HCL 100 MG TABLET (FP) PO SCH (21:42)
[2021-07-27] MEDS: PRENATAL VITAMINS W/ FOLIC ACID TABLET (FP) PO SCH (09:52)
[2021-07-27] MEDS: NICOTINE 14 MG/24 HOURS TOPICAL PATCH TD SCH (09:52)
[2021-07-27] MEDS: FLUoxetine HCL 10 MG CAPSULE PO SCH (09:52)
[2021-07-27] MEDS: QUEtiapine FUMARATE 300 MG TABLET PO SCH (21:29)
[2021-07-27] MEDS: THIAMINE HCL 100 MG TABLET (FP) PO SCH (21:29)
[2021-07-27] MEDS: ACETAMINOPHEN 325 MG TABLET (FP) PO PRN (21:29)
[2021-07-28] MEDS: PRENATAL VITAMINS W/ FOLIC ACID TABLET (FP) PO SCH (09:53)
[2021-07-28] MEDS: FLUoxetine HCL 10 MG CAPSULE PO SCH (09:54)
[2021-07-28] MEDS: NICOTINE 14 MG/24 HOURS TOPICAL PATCH TD SCH (09:54)
[2021-07-28] MEDS: ACETAMINOPHEN 325 MG TABLET (FP) PO PRN (19:47)
[2021-07-28] MEDS: THIAMINE HCL 100 MG TABLET (FP) PO SCH (21:24)
[2021-07-28] MEDS: QUEtiapine FUMARATE 300 MG TABLET PO SCH (21:24)
[2021-07-28] MEDS: MAGNESIUM HYDROX 2400MG/30ML ORAL SUSPENSION 30 ML CUP PO PRN (21:25)
[2021-07-29] MEDS: IBUPROFEN 400 MG TABLET (FP) PO PRN (04:56)
[2021-07-29 07:25] VITALS: BP 133/79; PULSE 83; TEMP 97.3
[2021-07-29] MEDS: FLUoxetine HCL 10 MG CAPSULE PO SCH (09:13)
[2021-07-29] MEDS: NICOTINE 14 MG/24 HOURS TOPICAL PATCH TD SCH (09:13)
[2021-07-29] MEDS: PRENATAL VITAMINS W/ FOLIC ACID TABLET (FP) PO SCH (09:13)
== END 2021-07-29 09:15 | disposition home or self-care (01) | DRG 772 ==
LOC: YASAS 13:52 → Y5N 07-15 10:43
PROVIDERS: ADMIT Allergy & Immunology; ATTEND Allergy & Immunology
PROC: HZ42ZZZ Group Counseling for Substance Abuse Treatment, Cognitive-Behavioral (ICD-10-PCS; principal; 2021-07-15)
DX: F10.20 Alcohol dependence, uncomplicated (principal); F14.20 Cocaine dependence, uncomplicated; F13.20 Sedative, hypnotic or anxiolytic dependence, uncomplicated; F12.20 Cannabis dependence, uncomplicated; F17.210 Nicotine dependence, cigarettes, uncomplicated; F19.280 Other psychoactive substance dependence with psychoactive substance-induced anxiety disorder; F19.24 Other psychoactive substance dependence with psychoactive substance-induced mood disorder; F20.9 Schizophrenia, unspecified; F32.A Depression, unspecified; G62.9 Polyneuropathy, unspecified; Z86.19 Personal history of other infectious and parasitic diseases; Z91.010 Allergy to peanuts; Z91.018 Allergy to other foods
CPT/HCPCS: 0013A; 36415; 80053; 81003; 81025; 85027; 86593; 86780; 87389; 87491; 87591; 87661; 91301; C9803; U0003; U0005

== ENCOUNTER 2021-10-01 11:52 | Inpatient (IN) | payer OTHER ==
[2021-10-01] MEDS ORDERED: NICOTINE 10 MG CARTRIDGE (INHALER) IH PRN (13:19)
[2021-10-01] MEDS ORDERED: ONDANSETRON *ODT* 4 MG TABLET SL PRN (13:19)
[2021-10-01] MEDS ORDERED: NICOTINE POLACRILEX 2 MG GUM BUC PRN (13:19)
[2021-10-01] MEDS ORDERED: MAGNESIUM HYDROX 2400MG/30ML ORAL SUSPENSION 30 ML CUP PO PRN (13:19)
[2021-10-01] MEDS ORDERED: DICYCLOMINE HCL 10 MG CAPSULE PO PRN (13:19)
[2021-10-01] MEDS ORDERED: ACETAMINOPHEN 325 MG TABLET (FP) PO PRN ×2 (13:19)
[2021-10-01] MEDS ORDERED: MAGNESIUM CITRATE 300 ML BOTTLE PO PRN (13:19)
[2021-10-01] MEDS ORDERED: LOPERAMIDE HCL 2 MG CAPSULE PO PRN (13:19)
[2021-10-01] MEDS ORDERED: BENZOCAINE/MENTHOL (CHLORASEPTIC ) LOZENGE MM PRN (13:19)
[2021-10-01] MEDS ORDERED: IBUPROFEN 400 MG TABLET (FP) PO PRN (13:19)
[2021-10-01] MEDS ORDERED: MAG HYDROX/AL HYDROX/SIMETH 30 ML UNIT-DOSE CUP PO PRN (13:19)
[2021-10-01] MEDS ORDERED: BISMUTH SUBSALICYLATE 524 MG/30 ML PO PRN (13:19)
[2021-10-01] MEDS ORDERED: guaiFENesin 200 MG/10 ML 10 ML UNIT-DOSE CUPS PO PRN (13:21)
[2021-10-01 13:42] VITALS: BMI 30.3
[2021-10-01] MEDS: hydrOXYzine PAMOATE 25 MG CAPSULE (FP) PO PRN ×2 (15:28→22:35)
[2021-10-01] MEDS: diazePAM 5 MG TABLET PO SCH ×2 (18:00→22:35)
[2021-10-01] MEDS: MELATONIN 5 MG TABLETS PO PRN (22:35)
[2021-10-01] MEDS: THIAMINE HCL 100 MG TABLET (FP) PO SCH (22:35)
[2021-10-01] MEDS: METHOCARBAMOL 500 MG TABLET PO PRN (22:35)
[2021-10-02] MEDS: diazePAM 5 MG TABLET PO SCH ×4 (06:11→22:02)
[2021-10-02] MEDS: hydrOXYzine PAMOATE 25 MG CAPSULE (FP) PO PRN ×2 (10:44→22:02)
[2021-10-02] MEDS: METHOCARBAMOL 500 MG TABLET PO PRN (10:44)
[2021-10-02] MEDS: PRENATAL VITAMINS W/ FOLIC ACID TABLET (FP) PO SCH (10:44)
[2021-10-02] MEDS ORDERED: COLLOIDAL OATMEAL 1 BAR EACH TP PRN (10:48)
[2021-10-02] MEDS ORDERED: PENICILLIN G BENZATHINE 2,400,000 UNIT/4 ML PFS IM SCH (11:07)
[2021-10-02] MEDS: FLUoxetine HCL 20 MG CAPSULE PO SCH (14:06)
[2021-10-02] MEDS: MELATONIN 5 MG TABLETS PO PRN (22:02)
[2021-10-02] MEDS: QUEtiapine FUMARATE 200 MG TABLET PO SCH (22:02)
[2021-10-02] MEDS: THIAMINE HCL 100 MG TABLET (FP) PO SCH (22:02)
[2021-10-03] MEDS: diazePAM 5 MG TABLET PO SCH ×3 (05:59→23:23)
[2021-10-03] MEDS: PRENATAL VITAMINS W/ FOLIC ACID TABLET (FP) PO SCH (10:38)
[2021-10-03] MEDS: diazePAM 5 MG TABLET PO PRN ×2 (10:38→19:47)
[2021-10-03] MEDS: FLUoxetine HCL 20 MG CAPSULE PO SCH (10:38)
[2021-10-03 12:38] LABS: HEMATOCRIT 32.9 % (32.4-45.2); HEMOGLOBIN 11.2 GM/dL (10.7-15.3); MCH 31.7 pg (25.7-33.7); MEAN CELL VOLUME 93.3 fl (80-96); MEAN PLT VOLUME 8.5 fl (7.5-11.1); PLATELET COUNT 246 10^3/uL (134-434); RBC 3.52 M/mm3 (3.60-5.2); WHITE BLOOD COUNT 2.9 K/mm3 (4.0-10.0)
[2021-10-03 12:58] LABS: CALCIUM 8.1 mg/dL (8.5-10.1)
[2021-10-03 12:59] LABS: ALBUMIN 2.8 g/dl (3.4-5.0); BLOOD UREA NITROGEN 19.8 mg/dL (7-18)
[2021-10-03 13:02] LABS: CREATININE 0.7 mg/dL (0.55-1.3)
[2021-10-03 13:03] LABS: BILIRUBIN,TOTAL 0.1 mg/dL (0.2-1); TOT PROT 5.8 g/dl (6.4-8.2)
[2021-10-03] MEDS: hydrOXYzine PAMOATE 25 MG CAPSULE (FP) PO PRN ×2 (19:46→23:23)
[2021-10-03] MEDS: MELATONIN 5 MG TABLETS PO PRN (23:23)
[2021-10-03] MEDS: QUEtiapine FUMARATE 200 MG TABLET PO SCH (23:23)
[2021-10-03] MEDS: THIAMINE HCL 100 MG TABLET (FP) PO SCH (23:23)
[2021-10-04] MEDS: diazePAM 5 MG TABLET PO SCH ×2 (06:44→17:39)
[2021-10-04] MEDS: FLUoxetine HCL 20 MG CAPSULE PO SCH (13:31)
[2021-10-04] MEDS: PRENATAL VITAMINS W/ FOLIC ACID TABLET (FP) PO SCH (13:31)
[2021-10-04] MEDS: THIAMINE HCL 100 MG TABLET (FP) PO SCH (22:07)
[2021-10-04] MEDS: MELATONIN 5 MG TABLETS PO PRN (22:07)
[2021-10-04] MEDS: QUEtiapine FUMARATE 200 MG TABLET PO SCH (22:07)
[2021-10-05 00:06] LABS: SARS-CoV-2 NAA Not Detected (Not Detected)
[2021-10-05] MEDS ORDERED: diazePAM 5 MG TABLET PO ONE (06:00)
[2021-10-05 09:51] VITALS: BP 115/66; PULSE 96; TEMP 97.8
[2021-10-05] MEDS: PRENATAL VITAMINS W/ FOLIC ACID TABLET (FP) PO SCH (09:51)
[2021-10-05] MEDS: FLUoxetine HCL 20 MG CAPSULE PO SCH (09:51)
== END 2021-10-05 12:30 | disposition home or self-care (01) | DRG 774 ==
LOC: YASAS 11:52 → Y6N 14:03
PROVIDERS: ADMIT Allergy & Immunology; ATTEND Allergy & Immunology
PROC: HZ2ZZZZ Detoxification Services for Substance Abuse Treatment (ICD-10-PCS; principal; 2021-10-01)
DX: F10.230 Alcohol dependence with withdrawal, uncomplicated (principal); F14.20 Cocaine dependence, uncomplicated; F17.210 Nicotine dependence, cigarettes, uncomplicated; F19.282 Other psychoactive substance dependence with psychoactive substance-induced sleep disorder; F20.0 Paranoid schizophrenia; F19.24 Other psychoactive substance dependence with psychoactive substance-induced mood disorder; G62.9 Polyneuropathy, unspecified; F41.8 Other specified anxiety disorders; F32.A Depression, unspecified; K21.9 Gastro-esophageal reflux disease without esophagitis; Z86.19 Personal history of other infectious and parasitic diseases
CPT/HCPCS: 36415; 80053; 81025; 85027; 86593; 86780; 87811; C9803-CS; Q0162; U0003; U0005

== ENCOUNTER 2021-10-17 10:26 | Inpatient (IN) | payer OTHER ==
[2021-10-17] MEDS ORDERED: guaiFENesin 200 MG/10 ML 10 ML UNIT-DOSE CUPS PO PRN (11:08)
[2021-10-17] MEDS ORDERED: LOPERAMIDE HCL 2 MG CAPSULE PO PRN (11:08)
[2021-10-17] MEDS ORDERED: NICOTINE 10 MG CARTRIDGE (INHALER) IH PRN (11:08)
[2021-10-17] MEDS ORDERED: MAG HYDROX/AL HYDROX/SIMETH 30 ML UNIT-DOSE CUP PO PRN (11:08)
[2021-10-17] MEDS ORDERED: MAGNESIUM CITRATE 300 ML BOTTLE PO PRN (11:08)
[2021-10-17] MEDS ORDERED: P-EPHED 60MG/TRIPROLIDI 2.5MG TABLET PO PRN (11:08)
[2021-10-17] MEDS ORDERED: MAGNESIUM HYDROX 2400MG/30ML ORAL SUSPENSION 30 ML CUP PO PRN (11:08)
[2021-10-17] MEDS ORDERED: IBUPROFEN 400 MG TABLET (FP) PO PRN (11:08)
[2021-10-17 11:50] VITALS: BMI 31.4
[2021-10-17 17:09] LABS: HEMATOCRIT 38.9 % (32.4-45.2); HEMOGLOBIN 13.1 GM/dL (10.7-15.3); MCH 31.7 pg (25.7-33.7); MCHC 33.5 g/dl (32.0-36.0); MEAN CELL VOLUME 94.5 fl (80-96); MEAN PLT VOLUME 8.5 fl (7.5-11.1); PLATELET COUNT 229 10^3/uL (134-434); RBC 4.12 M/mm3 (3.60-5.2); RDW 14.5 % (11.6-15.6); WHITE BLOOD COUNT 3.2 K/mm3 (4.0-10.0)
[2021-10-17 17:33] LABS: CALCIUM 9.5 mg/dL (8.5-10.1)
[2021-10-17 17:39] LABS: BILIRUBIN,TOTAL 0.2 mg/dL (0.2-1); BLOOD UREA NITROGEN 20.2 mg/dL (7-18); CREATININE 0.9 mg/dL (0.55-1.3); TOT PROT 8.1 g/dl (6.4-8.2)
[2021-10-17] MEDS: PRENATAL VITAMINS W/ FOLIC ACID TABLET (FP) PO SCH (18:28)
[2021-10-17] MEDS: NICOTINE 14 MG/24 HOURS TOPICAL PATCH TD SCH (18:29)
[2021-10-17] MEDS: hydrOXYzine PAMOATE 25 MG CAPSULE (FP) PO SCH ×2 (18:29→21:27)
[2021-10-17 19:40] LABS: SYPHILIS W/ RPR CONF REACTIVE (NONREACTIVE)
[2021-10-17] MEDS: CLOTRIMAZOLE 1% VAGINAL CREAM WITH APPLICATOR 45 GM TUBE VG SCH (21:26)
[2021-10-17] MEDS: MELATONIN 5 MG TABLETS PO SCH (21:27)
[2021-10-17] MEDS: THIAMINE HCL 100 MG TABLET (FP) PO SCH (21:27)
[2021-10-18] MEDS: hydrOXYzine PAMOATE 25 MG CAPSULE (FP) PO SCH ×5 (06:43→22:13)
[2021-10-18] MEDS: PRENATAL VITAMINS W/ FOLIC ACID TABLET (FP) PO SCH (11:13)
[2021-10-18] MEDS: MINERAL OIL/PET HY-PHL TOPICAL OINTMENT 454 GM JAR TP SCH (11:14)
[2021-10-18] MEDS: NICOTINE 14 MG/24 HOURS TOPICAL PATCH TD SCH (11:14)
[2021-10-18] MEDS: MELATONIN 5 MG TABLETS PO SCH (21:33)
[2021-10-18] MEDS: CLOTRIMAZOLE 1% VAGINAL CREAM WITH APPLICATOR 45 GM TUBE VG SCH (21:34)
[2021-10-18] MEDS: THIAMINE HCL 100 MG TABLET (FP) PO SCH (21:34)
[2021-10-18] MEDS: QUEtiapine FUMARATE 200 MG TABLET PO SCH (21:36)
[2021-10-18] MEDS: ACETAMINOPHEN 325 MG TABLET (FP) PO PRN (21:37)
[2021-10-19] MEDS: hydrOXYzine PAMOATE 25 MG CAPSULE (FP) PO SCH ×5 (06:23→21:15)
[2021-10-19] MEDS: ACETAMINOPHEN 325 MG TABLET (FP) PO PRN ×2 (06:25→11:53)
[2021-10-19 10:17] LABS: URINE APPEARANCE CLOUDY; URINE BILIRUBIN NEGATIVE (NEGATIVE); URINE COLOR YELLOW; URINE GLUCOSE (UA) NEGATIVE (NEGATIVE); URINE KETONE TRACE (NEGATIVE); URINE LEUK ESTERASE NEGATIVE (NEGATIVE); URINE NITRITE NEGATIVE (NEGATIVE); URINE PROTEIN NEGATIVE (NEGATIVE); URINE UROBILINOGEN 0.2 mg/dL (0.2-1.0)
[2021-10-19] MEDS: PRENATAL VITAMINS W/ FOLIC ACID TABLET (FP) PO SCH (10:48)
[2021-10-19] MEDS: NICOTINE 14 MG/24 HOURS TOPICAL PATCH TD SCH (10:48)
[2021-10-19] MEDS: FLUoxetine HCL 10 MG CAPSULE PO SCH (10:49)
[2021-10-19] MEDS: MINERAL OIL/PET HY-PHL TOPICAL OINTMENT 454 GM JAR TP SCH (10:51)
[2021-10-19] MEDS ORDERED: ALBUTEROL SO4 HFA INHALER IH PRN (12:16)
[2021-10-19] MEDS: MELATONIN 5 MG TABLETS PO SCH (21:14)
[2021-10-19] MEDS: CLOTRIMAZOLE 1% VAGINAL CREAM WITH APPLICATOR 45 GM TUBE VG SCH (21:14)
[2021-10-19] MEDS: QUEtiapine FUMARATE 200 MG TABLET PO SCH (21:15)
[2021-10-19] MEDS: THIAMINE HCL 100 MG TABLET (FP) PO SCH (21:15)
[2021-10-20] MEDS: hydrOXYzine PAMOATE 25 MG CAPSULE (FP) PO SCH ×2 (06:41→11:16)
[2021-10-20] MEDS: PRENATAL VITAMINS W/ FOLIC ACID TABLET (FP) PO SCH (10:05)
[2021-10-20] MEDS: FLUoxetine HCL 10 MG CAPSULE PO SCH (10:06)
[2021-10-20] MEDS: MINERAL OIL/PET HY-PHL TOPICAL OINTMENT 454 GM JAR TP SCH (10:07)
[2021-10-20] MEDS: NICOTINE 14 MG/24 HOURS TOPICAL PATCH TD SCH (10:07)
[2021-10-20] MEDS: PSYLLIUM 5.85 GM PACKET PO SCH (12:22)
[2021-10-20] MEDS: SENNOSIDES 8.6MG TABLET (FP) PO SCH ×2 (12:25→21:22)
[2021-10-20] MEDS: CLOTRIMAZOLE 1% VAGINAL CREAM WITH APPLICATOR 45 GM TUBE VG SCH (21:21)
[2021-10-20] MEDS: MELATONIN 5 MG TABLETS PO SCH (21:22)
[2021-10-20] MEDS: QUEtiapine FUMARATE 200 MG TABLET PO SCH (21:22)
[2021-10-20] MEDS: THIAMINE HCL 100 MG TABLET (FP) PO SCH (21:22)
[2021-10-21] MEDS: NICOTINE 14 MG/24 HOURS TOPICAL PATCH TD SCH (10:41)
[2021-10-21] MEDS: PRENATAL VITAMINS W/ FOLIC ACID TABLET (FP) PO SCH (10:41)
[2021-10-21] MEDS: SENNOSIDES 8.6MG TABLET (FP) PO SCH ×2 (10:41→21:14)
[2021-10-21] MEDS: PSYLLIUM 5.85 GM PACKET PO SCH (10:42)
[2021-10-21] MEDS: hydrOXYzine PAMOATE 25 MG CAPSULE (FP) PO PRN ×2 (10:42→21:14)
[2021-10-21] MEDS: MINERAL OIL/PET HY-PHL TOPICAL OINTMENT 454 GM JAR TP SCH (10:43)
[2021-10-21] MEDS: FLUoxetine HCL 10 MG CAPSULE PO SCH (10:45)
[2021-10-21] MEDS: QUEtiapine FUMARATE 200 MG TABLET PO SCH (21:14)
[2021-10-21] MEDS: THIAMINE HCL 100 MG TABLET (FP) PO SCH (21:14)
[2021-10-21] MEDS: MELATONIN 5 MG TABLETS PO SCH (21:14)
[2021-10-21] MEDS: CLOTRIMAZOLE 1% VAGINAL CREAM WITH APPLICATOR 45 GM TUBE VG SCH (21:41)
[2021-10-22 00:06] LABS: SARS-CoV-2 NAA Not Detected (Not Detected)
[2021-10-22] MEDS: PRENATAL VITAMINS W/ FOLIC ACID TABLET (FP) PO SCH (10:46)
[2021-10-22] MEDS: FLUoxetine HCL 10 MG CAPSULE PO SCH (10:46)
[2021-10-22] MEDS: PSYLLIUM 5.85 GM PACKET PO SCH (10:48)
[2021-10-22] MEDS: MINERAL OIL/PET HY-PHL TOPICAL OINTMENT 454 GM JAR TP SCH (10:52)
[2021-10-22] MEDS: NICOTINE 14 MG/24 HOURS TOPICAL PATCH TD SCH (10:52)
[2021-10-22] MEDS: SENNOSIDES 8.6MG TABLET (FP) PO SCH ×2 (10:52→21:52)
[2021-10-22] MEDS: CLOTRIMAZOLE 1% VAGINAL CREAM WITH APPLICATOR 45 GM TUBE VG SCH (21:51)
[2021-10-22] MEDS: QUEtiapine FUMARATE 200 MG TABLET PO SCH (21:52)
[2021-10-22] MEDS: THIAMINE HCL 100 MG TABLET (FP) PO SCH (21:52)
[2021-10-22] MEDS: hydrOXYzine PAMOATE 25 MG CAPSULE (FP) PO PRN (21:52)
[2021-10-22] MEDS: MELATONIN 5 MG TABLETS PO SCH (21:52)
[2021-10-23] MEDS: FLUoxetine HCL 10 MG CAPSULE PO SCH (10:26)
[2021-10-23] MEDS: PRENATAL VITAMINS W/ FOLIC ACID TABLET (FP) PO SCH (10:26)
[2021-10-23] MEDS: PSYLLIUM 5.85 GM PACKET PO SCH (10:27)
[2021-10-23] MEDS: MINERAL OIL/PET HY-PHL TOPICAL OINTMENT 454 GM JAR TP SCH (10:29)
[2021-10-23] MEDS: NICOTINE 14 MG/24 HOURS TOPICAL PATCH TD SCH (10:29)
[2021-10-23] MEDS: SENNOSIDES 8.6MG TABLET (FP) PO SCH ×2 (10:30→21:18)
[2021-10-23] MEDS: CLOTRIMAZOLE 1% VAGINAL CREAM WITH APPLICATOR 45 GM TUBE VG SCH (21:17)
[2021-10-23] MEDS: hydrOXYzine PAMOATE 25 MG CAPSULE (FP) PO PRN (21:18)
[2021-10-23] MEDS: QUEtiapine FUMARATE 200 MG TABLET PO SCH (21:18)
[2021-10-23] MEDS: MELATONIN 5 MG TABLETS PO SCH (21:18)
[2021-10-23] MEDS: THIAMINE HCL 100 MG TABLET (FP) PO SCH (21:18)
[2021-10-24 07:29] VITALS: BP 114/74; PULSE 93; TEMP 96.9
== END 2021-10-24 10:25 | disposition home or self-care (01) | DRG 772 ==
LOC: YASAS 10:26 → Y5N 16:45
PROVIDERS: ADMIT Allergy & Immunology; ATTEND Psychiatry & Neurology Pain Medicine
PROC: HZ42ZZZ Group Counseling for Substance Abuse Treatment, Cognitive-Behavioral (ICD-10-PCS; principal; 2021-10-17)
DX: F14.20 Cocaine dependence, uncomplicated (principal); F10.20 Alcohol dependence, uncomplicated; F17.210 Nicotine dependence, cigarettes, uncomplicated; F20.9 Schizophrenia, unspecified; F41.8 Other specified anxiety disorders; F32.A Depression, unspecified; J45.909 Unspecified asthma, uncomplicated; E66.9 Obesity, unspecified; Z68.31 Body mass index [BMI] 31.0-31.9, adult; Z86.2 Personal history of diseases of the blood and blood-forming organs and certain disorders involving the immune mechanism; Z86.19 Personal history of other infectious and parasitic diseases
CPT/HCPCS: 36415; 80053; 81003; 85027; 86593; 86780; 86803; C9803-CS; U0003; U0005

== ENCOUNTER 2021-11-30 12:38 | Inpatient (IN) | payer OTHER ==
[2021-11-30 13:27] VITALS: BMI 31.1
[2021-11-30] MEDS ORDERED: METHOCARBAMOL 500 MG TABLET PO PRN (14:23)
[2021-11-30] MEDS ORDERED: BENZOCAINE/MENTHOL (CHLORASEPTIC ) LOZENGE MM PRN (14:23)
[2021-11-30] MEDS ORDERED: IBUPROFEN 400 MG TABLET (FP) PO PRN (14:23)
[2021-11-30] MEDS ORDERED: LOPERAMIDE HCL 2 MG CAPSULE PO PRN (14:23)
[2021-11-30] MEDS ORDERED: DICYCLOMINE HCL 10 MG CAPSULE PO PRN (14:23)
[2021-11-30] MEDS ORDERED: ACETAMINOPHEN 325 MG TABLET (FP) PO PRN ×2 (14:23)
[2021-11-30] MEDS ORDERED: MAG HYDROX/AL HYDROX/SIMETH 30 ML UNIT-DOSE CUP PO PRN (14:23)
[2021-11-30] MEDS ORDERED: NICOTINE 10 MG CARTRIDGE (INHALER) IH PRN (14:23)
[2021-11-30] MEDS ORDERED: MAGNESIUM CITRATE 300 ML BOTTLE PO PRN (14:23)
[2021-11-30] MEDS ORDERED: BISMUTH SUBSALICYLATE 262 MG/15 ML BTL PO PRN (14:23)
[2021-11-30] MEDS ORDERED: IBUPROFEN 600 MG TABLET (FP) PO PRN (14:23)
[2021-11-30] MEDS ORDERED: ONDANSETRON *ODT* 4 MG TABLET SL PRN (14:23)
[2021-11-30] MEDS ORDERED: MAGNESIUM HYDROX 2400MG/30ML ORAL SUSPENSION 30 ML CUP PO PRN (14:23)
[2021-11-30 17:11] LABS: HEMATOCRIT 35.9 % (32.4-45.2); HEMOGLOBIN 12.2 GM/dL (10.7-15.3); MCH 31.3 pg (25.7-33.7); MCHC 33.9 g/dl (32.0-36.0); MEAN CELL VOLUME 92.3 fl (80-96); MEAN PLT VOLUME 8.7 fl (7.5-11.1); PLATELET COUNT 238 10^3/uL (134-434); RBC 3.88 M/mm3 (3.60-5.2); WHITE BLOOD COUNT 3.2 K/mm3 (4.0-10.0)
[2021-11-30 17:13] LABS: CALCIUM 8.6 mg/dL (8.5-10.1)
[2021-11-30 17:14] LABS: ALBUMIN 3.7 g/dl (3.4-5.0); BLOOD UREA NITROGEN 22.6 mg/dL (7-18)
[2021-11-30 17:17] LABS: CREATININE 0.8 mg/dL (0.55-1.3)
[2021-11-30 17:18] LABS: TOT PROT 7.3 g/dl (6.4-8.2)
[2021-11-30 17:19] LABS: BILIRUBIN,TOTAL 0.2 mg/dL (0.2-1)
[2021-11-30] MEDS: hydrOXYzine PAMOATE 25 MG CAPSULE (FP) PO SCH ×2 (18:06→22:12)
[2021-11-30] MEDS ORDERED: QUEtiapine FUMARATE 300 MG TABLET PO SCH (22:00)
[2021-11-30] MEDS: PSYLLIUM 5.85 GM PACKET PO SCH (22:12)
[2021-11-30] MEDS: QUEtiapine FUMARATE 200 MG TABLET PO SCH (22:12)
[2021-11-30] MEDS: MELATONIN 5 MG TABLETS PO SCH (22:12)
[2021-11-30] MEDS: THIAMINE HCL 100 MG TABLET (FP) PO SCH (22:12)
[2021-11-30] MEDS: DIVALPROEX SODIUM 500 MG TABLET E.C. PO SCH (22:12)
[2021-12-01] MEDS: hydrOXYzine PAMOATE 25 MG CAPSULE (FP) PO SCH ×5 (07:46→22:12)
[2021-12-01] MEDS ORDERED: diazePAM 5 MG TABLET PO PRN (09:24)
[2021-12-01] MEDS: PSYLLIUM 5.85 GM PACKET PO SCH ×2 (10:13→22:12)
[2021-12-01] MEDS: diazePAM 5 MG TABLET PO SCH ×3 (10:13→22:12)
[2021-12-01] MEDS: PRENATAL VITAMINS W/ FOLIC ACID TABLET (FP) PO SCH (10:13)
[2021-12-01] MEDS: DIVALPROEX SODIUM 500 MG TABLET E.C. PO SCH ×2 (10:13→22:12)
[2021-12-01] MEDS: FLUoxetine HCL 10 MG CAPSULE PO SCH (10:13)
[2021-12-01 15:38] LABS: HIV INTERPRETATION NEGATIVE (NEGATIVE)
[2021-12-01] MEDS: QUEtiapine FUMARATE 200 MG TABLET PO SCH (22:12)
[2021-12-01] MEDS: THIAMINE HCL 100 MG TABLET (FP) PO SCH (22:12)
[2021-12-01] MEDS: MELATONIN 5 MG TABLETS PO SCH (22:12)
[2021-12-02] MEDS: hydrOXYzine PAMOATE 25 MG CAPSULE (FP) PO SCH ×2 (06:03→10:19)
[2021-12-02] MEDS: diazePAM 5 MG TABLET PO SCH ×4 (06:03→22:10)
[2021-12-02] MEDS: DIVALPROEX SODIUM 500 MG TABLET E.C. PO SCH ×2 (10:19→22:10)
[2021-12-02] MEDS: PSYLLIUM 5.85 GM PACKET PO SCH ×2 (10:19→22:10)
[2021-12-02] MEDS: PRENATAL VITAMINS W/ FOLIC ACID TABLET (FP) PO SCH (10:19)
[2021-12-02] MEDS: FLUoxetine HCL 10 MG CAPSULE PO SCH (10:19)
[2021-12-02] MEDS ORDERED: ALBUTEROL SO4 HFA INHALER IH PRN (11:36)
[2021-12-02] MEDS ORDERED: hydrOXYzine PAMOATE 25 MG CAPSULE (FP) PO PRN (11:36)
[2021-12-02 17:45] VITALS: TEMP 97.7
[2021-12-02] MEDS: THIAMINE HCL 100 MG TABLET (FP) PO SCH (22:10)
[2021-12-02] MEDS: MELATONIN 5 MG TABLETS PO SCH (22:10)
[2021-12-02] MEDS: QUEtiapine FUMARATE 200 MG TABLET PO SCH (22:10)
[2021-12-03] MEDS ORDERED: diazePAM 5 MG TABLET PO SCH (06:00)
[2021-12-03 08:52] VITALS: BP 119/69; PULSE 83
[2021-12-04] MEDS ORDERED: diazePAM 5 MG TABLET PO ONE (06:00)
== END 2021-12-03 09:24 | disposition home or self-care (01) | DRG 774 ==
LOC: YASAS 12:38 → Y3N 14:26
PROVIDERS: ADMIT Allergy & Immunology; ATTEND Surgery
PROC: HZ2ZZZZ Detoxification Services for Substance Abuse Treatment (ICD-10-PCS; principal; 2021-11-30)
DX: F10.230 Alcohol dependence with withdrawal, uncomplicated (principal); F14.20 Cocaine dependence, uncomplicated; F17.210 Nicotine dependence, cigarettes, uncomplicated; F20.9 Schizophrenia, unspecified; J45.909 Unspecified asthma, uncomplicated; G47.00 Insomnia, unspecified; K21.9 Gastro-esophageal reflux disease without esophagitis; E66.9 Obesity, unspecified; Z68.31 Body mass index [BMI] 31.0-31.9, adult; Z91.010 Allergy to peanuts; Z91.018 Allergy to other foods; Z86.19 Personal history of other infectious and parasitic diseases; Z56.0 Unemployment, unspecified
CPT/HCPCS: 36415; 80053; 80164; 81025; 85027; 86593; 86780; 87389; 87811; C9803-CS; U0003; U0005

== ENCOUNTER 2021-12-22 12:17 | Inpatient (IN) | payer OTHER ==
[2021-12-22 13:31] VITALS: BMI 32.0
[2021-12-22] MEDS ORDERED: IBUPROFEN 400 MG TABLET (FP) PO PRN (14:13)
[2021-12-22] MEDS ORDERED: DICYCLOMINE HCL 10 MG CAPSULE PO PRN (14:13)
[2021-12-22] MEDS ORDERED: chlordiazePOXIDE HCL 25 MG CAPSULE PO PRN (14:13)
[2021-12-22] MEDS ORDERED: MAGNESIUM CITRATE 300 ML BOTTLE PO PRN (14:13)
[2021-12-22] MEDS ORDERED: MAGNESIUM HYDROX 2400MG/30ML ORAL SUSPENSION 30 ML CUP PO PRN (14:13)
[2021-12-22] MEDS ORDERED: BISMUTH SUBSALICYLATE 524 MG/30 ML PO PRN (14:13)
[2021-12-22] MEDS ORDERED: IBUPROFEN 600 MG TABLET (FP) PO PRN (14:13)
[2021-12-22] MEDS ORDERED: ACETAMINOPHEN 325 MG TABLET (FP) PO PRN ×2 (14:13)
[2021-12-22] MEDS ORDERED: NICOTINE 10 MG CARTRIDGE (INHALER) IH PRN (14:13)
[2021-12-22] MEDS ORDERED: ONDANSETRON *ODT* 4 MG TABLET SL PRN (14:13)
[2021-12-22] MEDS ORDERED: LOPERAMIDE HCL 2 MG CAPSULE PO PRN (14:13)
[2021-12-22] MEDS ORDERED: MAG HYDROX/AL HYDROX/SIMETH 30 ML UNIT-DOSE CUP PO PRN (14:13)
[2021-12-22] MEDS ORDERED: BENZOCAINE/MENTHOL (CHLORASEPTIC ) LOZENGE MM PRN (14:13)
[2021-12-22] MEDS ORDERED: METHOCARBAMOL 500 MG TABLET PO PRN (14:13)
[2021-12-22] MEDS ORDERED: ALBUTEROL SO4 HFA INHALER IH PRN (14:16)
[2021-12-22] MEDS ORDERED: chlordiazePOXIDE HCL 25 MG CAPSULE PO SCH (17:00)
[2021-12-22] MEDS: hydrOXYzine PAMOATE 25 MG CAPSULE (FP) PO SCH ×2 (19:00→22:32)
[2021-12-22] MEDS: QUEtiapine FUMARATE 300 MG TABLET PO SCH (22:32)
[2021-12-22] MEDS: DIVALPROEX SODIUM 500 MG TABLET E.C. PO SCH (22:32)
[2021-12-22] MEDS: MELATONIN 5 MG TABLETS PO SCH (22:32)
[2021-12-22] MEDS: THIAMINE HCL 100 MG TABLET (FP) PO SCH (22:32)
[2021-12-23] MEDS: FLUoxetine HCL 10 MG CAPSULE PO SCH ×2 (02:24→11:05)
[2021-12-23] MEDS: PRENATAL VITAMINS W/ FOLIC ACID TABLET (FP) PO SCH ×2 (02:24→11:05)
[2021-12-23] MEDS: hydrOXYzine PAMOATE 25 MG CAPSULE (FP) PO SCH ×5 (07:53→22:21)
[2021-12-23] MEDS: FERROUS SO4 325 MG TABLET (FP) PO SCH (11:05)
[2021-12-23] MEDS: DIVALPROEX SODIUM 500 MG TABLET E.C. PO SCH ×2 (11:05→22:21)
[2021-12-23 12:32] LABS: HEMOGLOBIN 12.4 GM/dL (10.7-15.3); MCH 31.3 pg (25.7-33.7); MCHC 33.5 g/dl (32.0-36.0); MEAN CELL VOLUME 93.6 fl (80-96); MEAN PLT VOLUME 8.4 fl (7.5-11.1); PLATELET COUNT 248 10^3/uL (134-434); RBC 3.95 M/mm3 (3.60-5.2); RDW 14.2 % (11.6-15.6); WHITE BLOOD COUNT 2.6 K/mm3 (4.0-10.0)
[2021-12-23 12:38] LABS: ALBUMIN 3.2 g/dl (3.4-5.0); BLOOD UREA NITROGEN 16.8 mg/dL (7-18); CALCIUM 8.7 mg/dL (8.5-10.1)
[2021-12-23 12:41] LABS: CREATININE 0.8 mg/dL (0.55-1.3)
[2021-12-23 12:43] LABS: TOT PROT 6.8 g/dl (6.4-8.2)
[2021-12-23 12:44] LABS: BILIRUBIN,TOTAL 0.4 mg/dL (0.2-1)
[2021-12-23 13:05] VITALS: RESP 18
[2021-12-23] MEDS: THIAMINE HCL 100 MG TABLET (FP) PO SCH (22:21)
[2021-12-23] MEDS: QUEtiapine FUMARATE 300 MG TABLET PO SCH (22:21)
[2021-12-23] MEDS: MELATONIN 5 MG TABLETS PO SCH (22:21)
[2021-12-24] MEDS ORDERED: chlordiazePOXIDE HCL 25 MG CAPSULE PO SCH (05:00)
[2021-12-24] MEDS: hydrOXYzine PAMOATE 25 MG CAPSULE (FP) PO SCH ×2 (06:52→10:55)
[2021-12-24] MEDS: DIVALPROEX SODIUM 500 MG TABLET E.C. PO SCH (10:55)
[2021-12-24] MEDS: PRENATAL VITAMINS W/ FOLIC ACID TABLET (FP) PO SCH (10:55)
[2021-12-24] MEDS: FLUoxetine HCL 10 MG CAPSULE PO SCH (10:55)
[2021-12-24] MEDS: FERROUS SO4 325 MG TABLET (FP) PO SCH (10:55)
[2021-12-24 12:56] VITALS: BP 104/66; PULSE 88; TEMP 96.1
[2021-12-25] MEDS ORDERED: chlordiazePOXIDE HCL 10 MG CAPSULE PO PRN
[2021-12-25] MEDS ORDERED: chlordiazePOXIDE HCL 10 MG CAPSULE PO SCH (05:00)
[2021-12-26] MEDS ORDERED: chlordiazePOXIDE HCL 10 MG CAPSULE PO SCH (05:00)
[2021-12-27] MEDS ORDERED: chlordiazePOXIDE HCL 10 MG CAPSULE PO ONE (05:00)
== END 2021-12-24 13:12 | disposition home or self-care (01) | DRG 774 ==
LOC: YASAS 12:17 → SUATTDRO 12:17 → Y3N 16:38
PROVIDERS: ADMIT Allergy & Immunology; ATTEND Surgery
PROC: HZ2ZZZZ Detoxification Services for Substance Abuse Treatment (ICD-10-PCS; principal; 2021-12-22)
DX: F10.230 Alcohol dependence with withdrawal, uncomplicated (principal); F14.20 Cocaine dependence, uncomplicated; F12.10 Cannabis abuse, uncomplicated; F17.210 Nicotine dependence, cigarettes, uncomplicated; F20.9 Schizophrenia, unspecified; D50.9 Iron deficiency anemia, unspecified; G62.9 Polyneuropathy, unspecified; J45.909 Unspecified asthma, uncomplicated
CPT/HCPCS: 36415; 80053; 81025; 85027; 86593; 86780; C9803-CS; U0003; U0005